=== PATIENT | female | born 1970 | race Caucasian/White ===

== ENCOUNTER 2020-09-09 13:13 | Emergency (ER) | payer BC, SELFPAY ==
[2020-09-09 13:17] VITALS: BP 161/78; PULSE 71; RESP 12; TEMP 36.7; O2SAT 100
--- NOTE | 2020-09-09 13:24 | ED.WOUNDLAC ---
HPI - Wound/Laceration General Chief Complaint: Wound/Laceration Stated Complaint: FINGER LACERATION Time Seen by Provider: 09/09/20 13:25 Source: patient and RN notes reviewed Mode of arrival: ambulatory Limitations: no limitations History of Present Illness HPI narrative: 50-year-old female presents to the [facility] with a laceration to the distal aspect of second finger left hand. At 11 AM patient went to cone picker a broken glass and cut the finger. Unable to get the bleeding to stop. Unsure of last Tdap. Has been try to get the bleeding to stop but has been unsuccessful so she came to the [facility] for evaluation. has full range of motion at all joints. Sensation intact distal to injury. Capillary refill under 2 seconds. Related Data Home Medications Medication Instructions Recorded Confirmed alprazolam 0.25 mg PO DAILY PRN 09/09/20 09/09/20 metoprolol succinate 25 mg PO DAILY 09/09/20 09/09/20 Allergies Allergy/AdvReac Type Severity Reaction Status Date / Time gluten Allergy Mild GI UPSET Verified 09/09/20 13:32 NUTS Allergy Severe ANAPHYLATIC Uncoded 09/09/20 13:32 RX SESAME SEEDS Allergy Severe SWELLING Uncoded 09/09/20 13:32 DAIRY Allergy Intermediate GI UPSET Uncoded 09/09/20 13:32 HALIBAT Allergy Unknown POSITIVE Uncoded 09/09/20 13:32 TESTING Review of Systems Review of Systems: Narrative: CONSTITUTIONAL: Denies fever, chills, or sweats. EYES: Denies visual changes, redness, or discharge. ENT: Denies rhinorrhea, congestion, sore throat, or otalgia. CARDIOVASCULAR: Denies chest pain, palpitations, or edema. RESPIRATORY: Denies cough or dyspnea. GASTROINTESTINAL: Denies abdominal pain, nausea, vomiting, or diarrhea. GENITOURINARY: Denies dysuria or hematuria. SKIN: Denies rash or itching. Laceration left second finger MUSCULOSKELETAL: Denies back pain, joint pain, or myalgia. NEUROLOGIC: Denies headache, numbness, or weakness. PSYCHIATRIC: Denies anxiety or depression. All other systems reviewed are negative, except as documented in HPI. [facility] Family History Family History Mother Depression Hypertension Cerebrovascular accident Family history of malignant neoplasm of skin Father Hypertension Family history of arthritis Family history of malignant neoplasm of skin Other Diabetes mellitus Family history of malignant neoplasm Social History Social History Smoking status: Never smoker Alcohol intake: current Comments At the time of my signature, I reviewed and agree with the nursing past medical, surgical, social, and family history. There is no relevant family history pertinent to the patient complaint. Exam Narrative: Exam Narrative: GENERAL: This is a well-nourished, well-developed patient, in no apparent distress. HEAD: normocephalic, atraumatic. EYES: PERRL. Sclera clear/white. Vision is grossly intact. EARS: External ears normal CARDIOVASCULAR: Regular rate and rhythm. RESPIRATORY: Clear to auscultation. Breath sounds equal bilaterally. No wheezes, rales, or rhonchi. SKIN: warm, intact with no suspicious lesions or rash, good texture and turgor. Laceration left second finger 1.5 cm NEURO: awake, alert, and oriented to person, place and time. There were no obvious focal neurologic abnormalities. EXTREMITIES: No joint tenderness, effusion, or edema noted. No calf tenderness. Negative Homans sign bilaterally. BACK: Nontender without deformity. No CVA tenderness. Course Vital Signs Vital signs: Vital Signs Temperature 98.0 F 09/09/20 13:17 Pulse Rate 71 09/09/20 13:17 Respiratory Rate 12 09/09/20 13:17 Blood Pressure 161/78 H 09/09/20 13:17 Pulse Oximetry 100 09/09/20 13:17 Temperature 98.0 F 09/09/20 13:17 Pulse Rate 71 09/09/20 13:17 Respiratory Rate 12 09/09/20 13:17 Blood Pressure 161/78 H 09/09/20 13:17 Pulse Oximetry 100 09/09/20
[2020-09-09] MEDS: TETANUS,DIPHTHERIA,AC PERTUSSIS ADULT (0.5 ML) BOOSTRIX IM (13:38)
[2020-09-09] MEDS: LIDOCAINE HCL 1% LOCAL INJ 20 ML VIAL 5 ML INFILTRATE (13:40)
== END 2020-09-09 14:42 | disposition home or self-care (01) ==
PROVIDERS: Emergency Provider Nurse Practitioner; PCP Physician Assistant
DX: S61.211A Laceration without foreign body of left index finger without damage to nail, initial encounter (principal); W25.XXXA Contact with sharp glass, initial encounter; Z23 Encounter for immunization; I10 Essential (primary) hypertension; F41.9 Anxiety disorder, unspecified
CPT/HCPCS: 12001; 90471; 90715; 99212; G0463

== ENCOUNTER 2023-04-25 07:01 | Outpatient (CLI) | payer BC, SELFPAY ==
--- NOTE | ~2023-04-25 | XR_ITS ---
XR lumbar spine min 4V DATE: 04/25/2023 07:23 INDICATION: Low back pain. No injury. TECHNIQUE: AP, lateral, bilateral oblique views, coned lateral lumbosacral view COMPARISON: None FINDINGS: There is mild levoscoliosis of the lumbar spine. The lumbar vertebrae are normally aligned. No fracture or bone destruction, spondylolysis or spondylolisthesis. The included lower thoracic and lumbar pedicles are intact. Lumbar and lumbosacral interspaces are well preserved. There is minimal degenerative spurring of the lumbar spine The sacroiliac joints are intact. 3 x 5 mm calcification overlying the expected position of the left ureter at the lower L4 level. Left ureteral calculus is not excluded. There is a prominent amount of fecal material throughout much of the colon. Surgical clips overlying the right upper quadrant, consistent with cholecystectomy. Surgical clips overlie the right lower abdomen and bilateral pelvic region. IMPRESSION: Cannot exclude left ureteral 3 x 5 mm calcified calculus at lower L4 level. Status post cholecystectomy Surgical clips overlying the lower right abdomen and bilateral pelvis Mild lumbar levoscoliosis Minimal degenerative spurring of the lumbar spine Reviewed, dictated and finalized at location A. IMPRESSION: Cannot exclude left ureteral 3 x 5 mm calcified calculus at lower L 4 level. Status post cholecystectomy Surgical clips overlying the lower right abdomen and bilateral pelvis Mild lumbar levoscoliosis Minimal degenerative spurring of the lumbar spine
== END 2023-04-25 07:02 | disposition home or self-care (01) ==
PROVIDERS: PCP Physician Assistant; Visit Provider Physician Assistant
DX: M41.86 Other forms of scoliosis, lumbar region (principal); M25.78 Osteophyte, vertebrae; N99.4 Postprocedural pelvic peritoneal adhesions; Z90.49 Acquired absence of other specified parts of digestive tract
CPT/HCPCS: 72110

== ENCOUNTER 2023-05-10 09:22 | Outpatient (CLI) | payer BC, SELFPAY ==
--- NOTE | ~2023-05-10 | XR_ITS ---
Supine and upright views of the abdomen Clinical history: Left-sided stone Findings: Bowel gas pattern is nonspecific. No evidence for obstruction or free air. 5 mm possible mi d left ureteral stone, projecting at the level of L4. Cholecystectomy clips noted. Surgical clips are noted bilaterally in the pelvis. Osseous structures are intact. Impression: Suspected 5 mm mid left ureteral stone, as above. Reviewed, dictated and finalized at location . OCOL MANAGER Impression: Suspected 5 mm mid left ureteral stone, as above.
== END 2023-05-10 09:23 | disposition home or self-care (01) ==
LOC: ANHIMG 09:24
PROVIDERS: PCP Physician Assistant; Visit Provider Physician Assistant
DX: N20.1 Calculus of ureter (principal)
CPT/HCPCS: 74018

== ENCOUNTER 2023-05-25 14:28 | Outpatient (CLI) | payer BC, SELFPAY ==
--- NOTE | ~2023-05-25 | CT_ITS ---
Non-contrast CT scan of the Abdomen and Pelvis Clinical indication: Ureteral stone Technique: 2.5 mm axial scans were obtained through the abdomen and pelvis without intravenous or or al contrast. Dose reduction technique was used on this scan by utilizing automated exposure control a nd iterative reconstruction technique. The dose-length product (DLP) was 288.20 mGy-cm. Findings: Images through the lung bases reveal no abnormalities. 2 mm nonobstructing left renal stone noted. No other renal or ureteral stones seen. No hydronephrosis . The liver, spleen, pancreas, and adrenals appear normal. Cholecystectomy clips are present. There is no aortic aneurysm. There is no evidence of bowel obstruction. Images through the pelvis were performed. There is no evidence of ascites or lymphadenopathy. Urinary bladder unremarkable. No adnexal mass seen. Impression: 2 mm nonobstructing left renal stone. No ureteral stones or hydronephrosis. Reviewed, dictated and finalized at [facility]. OBIOLOGY LAB TECHNICIAN Impression: 2 mm nonobstructing left renal stone. No ureteral stones or hydronephrosis.
== END 2023-05-25 14:29 | disposition home or self-care (01) ==
PROVIDERS: PCP Physician Assistant; Visit Provider Physician Assistant
DX: N20.1 Calculus of ureter (principal); N20.0 Calculus of kidney
CPT/HCPCS: 74176

== ENCOUNTER 2024-01-05 15:57 | Outpatient (CLI) | payer BC, SELFPAY ==
--- NOTE | ~2024-01-05 | XR_ITS ---
XR sacrum coccyx min 2V Ordering provider: Tania Aguirre, RHINA History: . PAIN IN COCCYX . Comparison: None. FINDINGS: BONES: Lucencies in the area of the coccyx suggestive of fractures. Clinical correlation for tenderne ss in the area is advised. JOINTS: The sacroiliac joint spaces are normal. SOFT TISSUES: Normal. IMPRESSION: Lucencies in the area of the coccyx suggestive of fractures. Clinical correlation for tenderness in t he area is advised. Reviewed, dictated and finalized at location A. IMPRESSION: Lucencies in the area of the coccyx suggestive of fractures. Clinical correlati on for tenderness in the area is advised.
--- NOTE | ~2024-01-05 | XR_ITS ---
3 VIEWS THORACIC SPINE Ordering provider: Tania Aguirre, PAAshkanC History: . PAIN IN COCCYX . Comparison: None. FINDINGS: VERTEBRAL BODIES: Normal height and alignment. No visible fracture or subluxation. Degenerative malin es. DISK SPACES: Narrowing at multiple levels. SOFT TISSUES: Normal. IMPRESSION: No acute osseous abnormality of the thoracic spine. Reviewed, dictated and finalized at location A.
== END 2024-01-05 15:58 | disposition home or self-care (01) ==
PROVIDERS: PCP Physician Assistant; Visit Provider Physician Assistant
DX: M54.6 Pain in thoracic spine (principal); M53.3 Sacrococcygeal disorders, not elsewhere classified
CPT/HCPCS: 72070; 72220

== ENCOUNTER 2024-01-27 14:26 | Outpatient (CLI) | payer BC, SELFPAY ==
--- NOTE | ~2024-01-27 | CT_ITS ---
EXAMINATION: CT abdomen pelvis wo con DATE: 01/27/2024 14:52 INDICATION: Renal stone TECHNIQUE: Computed tomography (CT) of the abdomen and pelvis was performed without intravenous contr ast. Automated exposure control and iterative reconstruction technique were employed. The dose-length product was 223.80 mGy-cm. COMPARISON: 05/25/2023 FINDINGS: Lung bases are clear. Heart size is normal. No pericardial or pleural effusion. Cholecystectomy clips the gallbladder fossa. Liver and spleen, pancreas, bilateral adrenal glands and right kidney are nor mal. 2 mm stone at a lower pole calyx of the left kidney. No other urolithiasis or hydronephrosis. La rge amount of stool scattered throughout the colon. No bowel obstruction. Bladder is normal. The uter us is not identified and has likely been surgically resected. Multiple surgical clips in the peripher al left and right pelvis extending along the bilateral iliac vasculature likely related to prior pelv ic lymph node dissections. No free intraperitoneal gas or fluid. No pathologically enlarged abdominal or pelvic lymphadenopathy. Severe lower thoracic spondylosis with Schmorl's nodes. Mild lumbar spond ylosis. IMPRESSION: 1. 2 mm nonobstructing left renal stone. No other urolithiasis or hydronephrosis. Reviewed, dictated and finalized at location A. IMPRESSION: 1. 2 mm nonobstructing left renal stone. No other urolithiasis or hydronephrosi s.
== END 2024-01-27 14:27 ==
PROVIDERS: PCP Physician Assistant; Visit Provider Physician Assistant
DX: N20.0 Calculus of kidney (principal)
CPT/HCPCS: 74176

== ENCOUNTER 2025-04-26 13:41 | Outpatient (CLI) | payer BC, SELFPAY ==
--- OUTSIDE RECORDS SUMMARY | 2004-10-28 06:00 | XMS_ITS | Continuity of Care Document ---
Author Organization [facility] Address [address] [place] [address] [place] [address] Phone Care Team Providers Care Coding Technician Name Role Phone Jasvir Shepard MD Unavailable Unavailable Advance Directives Directive Yes / No Effective Date File Name No Information Encounters Encounter Description Practice Location Reason(s) For Visit Diagnoses Date Provider Providers Copied on Encounter [facility], [id number] [place] [address] [address], [place], [place], [id number], [place] tel:[phone] [facility] No Information October-0 2-200 5 Devyn Tay. [address] [facility], [facility] [address], [place], [place], [id number], [place]. tel:[phone] Family History Family Member Type Diagnosis Age At Onset No Information Payers Payer name Insurance type Covered libertarian ID Authoriza tilynette(s) [facility] CI [id number] Social History Type Description Quantity Date Captured Comments Sex Female Smoking Status No Information Chief Complaint And Reason For Visit No Information Reason For Referral Reason For Referral No Information History Of Present Illness Encounter Date Complaint History Of Prese nt Illness No Information Functional Status Date Functional Assessmen t No Information Instructions Date Instruction Additional Infor mation No Information Assessments Type Assessment Date No Information Patient Care Teams Name Effective Dates (start - stop) Status Members No Information
--- OUTSIDE RECORDS SUMMARY | 2013-03-07 04:53 | XMS_ITS | Continuity of Care Document ---
Author Organization [facility] Address [address] [place] [address] Phone Care Team Providers Care Chemicals Fermentation Operator Name Role Phone Teofilo FRIEDMAN, Alysa Unavailable Unavailabl e Allergies, Adverse Reactions, Alerts Substance Reaction Status Criticality No Known allergies Medications Medication Instructions Dosage Effective Dates (start - stop) Status Comments Zantac 300 mg tablet take 1 tablet (300MG) by oral route every day at bedtime as needed - Active okay to substitute HYZAAR (unknown strength) Not Available - Active DUTOPROL (unknown strength) Not Available - Active WELLBUTRIN (unknown strength) Not Available - Active VITAMIN D2 (unknown strength) Not Available - Active MULTIVITAMINS (unknown strength) Not Available - Active POTASSIUM (unknown strength) Not Available - Active Dymista 137 mcg-50 mcg/spray Nasal Bogart one sp each nostril B.I.D- See notes below - No Longer Active fill script when patient brings her coupon in Xanax 0.25 mg tablet take 1 tablet (0.25MG) by oral route 3 times every day as needed 0.25 MG - No Longer Active PREMARIN (unknown strength) take 1 tablet by oral route every day Not Available - No Longer Active Procedures Procedure Date BREATHING CAPACITY TEST OFFICE/OUTPATIENT VISIT EST ROUTINE VENIPUNCTURE BREATHING CAPACITY TEST OFFICE/OUTPATIENT VISIT EST OFFICE/OUTPATIENT VISIT EST Advance Directives Directive Yes / No Effective Date File Name Resuscitation Not Answered N/A N/A Life Support Not Answered N/A N/A Intubation Not Answered N/A N/A Antibiotics Not Answered N/A N/A IV Fluid Support Not Answered N/A N/A Tube Feed Not Answered N/A N/A Other Directive N/A N/A WARNING:The information contained in this section is historical and is provided for information only and does not constitute a legal document or any assurance that the information is still accurate. Please verify the information with the serrato of the legal document before using it for clinical purposes. Encounters Encounter Description Practice Location Reason(s) For Visit Diagnoses Date Provider Providers Copied on Encounter OFFICE/OUTPA TIENT VISIT EST [facility] , [address], [place], [address], [place] tel:[phone] [facility] follow up (chief complaint) EOSINOPHILIC ESOPHAGITIS Sep-0 3 Teofilo Hamsa. [address], [place], [place], [address]. tel:[phone] OFFICE/OUTPA TIENT VISIT EST [facility] , [address], [place], [address], [place] tel:[phone] [facility] follow up (chief complaint) Respiratory abnormality, unspecifiedChro jeanne nasopharyngitis FatigueHyperten ashkan, Unspecified Aug- 3-201 3 Teofilo Hamsa. [address], [place], [place], [id number]. tel:[phone] OFFICE/OUTPA TIENT VISIT EST [facility] , [address], [place], [address], [place] tel:[phone] [facility] follow up (chief complaint) EOSINOPHILIC ESOPHAGITIS Sep-0 -201 2 Teofilo Hamsa. [address] [facility] [facility] [address], [place], [place], [id number]. tel:[phone] Referring Provider: Immanuel Terry, [address] [facility] [facility], [place], [address]. tel:[phone] [facility] , [address], [place], [address], tel:[phone] [facility] No Information 2 Teofilo Watt. [address], [place], [place], [id number]. tel:[phone] Family History Family Member Type Diagnosis Age At Onset No Information Payers Payer name Insurance type Covered green party ID Authoriza tion(s) No Information Social History Type Description Quantity Date Captured Comments Alcohol Use Details Unknown Caffeine Use Details Unknown Tobacco Use Status No Information Smoking Status Never smoker Sex Female Vital Signs Date / Time: Height Weight BMI Pulse Rate Blood Pressure Temperature Respiratory Rate Body Surface Area Head Circumference Head Circ. Percentile Wt./Hair. Percentile BMI percentile Pulse Ox Inhaled Ox 9:53 AM 65.00 in 186.00 lbs 30.9 5 kg/m eter (2) 76 /min 120/78 mm[Hg] 98.10 F 94 % Chief Complaint And Reason For Visit From encounter dated '03/07/2013 09:53'. follow up (chief complaint) Reason For Referral Reason For Referral No Information History Of Present Illness Encounter Date Complaint History Of Prese nt Illness No Information Functional Status Date Functional Assessmen t No Information Instructions Date Instruction Additional Infor mation No Information Assessments Type Assessment Date No Information Mental Status Date Cognitive Assessment Orientation - [place] ed to time, place, person, situation. Patient Care Teams Name Effective Dates (start - stop) Status Members No Information
--- NOTE | ~2025-04-26 | XR_ITS ---
Examination: XR chest 2V Clinical History: other chest pain Comparison: 02/08/2018 Technique: PA and Lateral Findings: Cardiomediastinal silhouette normal size and configuration. Mild linear bibasilar atelectasis. Lungs otherwise clear. No acute bony abnormality. IMPRESSION: 1. No acute cardiopulmonary findings. Reviewed, dictated and finalized at location R.
--- OUTSIDE RECORDS SUMMARY | 2025-04-26 15:15 | XMS_ITS | Clinical Summary ---
Author Organization [facility] Address [address] [place] [address] Care Team Providers Care Cover Seamer Name Role Phone Unavailable Primary Care Provider Unavailabl e Source Comments [facility],non-owned Affiliates and Associated Physician Practices is amultiple site organization consisting of ambulatory clinics and hospital sitesin [place], [place], [place] and [place]. This disclosure is being madepursuant to the Care Everywhere program and may not contain all information available regarding this patient. Last updated 18.[facility] Allergies No known active allergies Medications * Be aware that medications may not be up to date on this document. Alwaysverify current medications with the patient. 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 Gender Identity Not on file Sexual Orientation Not on file Last Filed Vital Signs Vital Sign Reading Time Taken Comments Blood Pressure 112/70 01/13/2019 6:01 PM CDT Pulse 87 01/13/2019 6:01 PM CDT Temperature 36.8 C (98.2 F) 01/13/2019 6:01 PM CDT Respiratory Rate 16 01/13/2019 6:01 PM CDT Oxygen Saturation 97% 01/13/2019 6:01 PM CDT Inhaled Oxygen Concentration - - Weight 68 kg (150 lb) 01/13/2019 6:01 PM CDT Height 165.1 cm (5' 5) 01/13/2019 6:01 PM CDT Body Mass Index 24.96 01/13/2019 6:01 PM CDT Plan of Treatment Health Maintenance Due Date Last Done Comments COLOGUARD (AGES 45-75) - COL ON CA SCREENING 1971 COLON MONITORING 1971 COLONOSCOPY - COLON CA SCREENING 1971 CT COLONOGRAPHY - COLON CA SCREENING 1971 Colorectal Cancer Screening 1971 FIT - COLON CA SCREENING 1971 FLEX SIG - COLON CA SCREENING 1971 LIPID TESTING 1971 MAMMOGRAM 1971 HIV SCREENING 1986 HEPATITIS C SCREENING 07/24/1989 DTAP/TDAP/TD VACCINES (1 - Tdap) 1990 HEPATITIS B VACCINE (1 of 3 - 19+ 3-dose series) 1990 PNEUMOCOCCAL VACCINE 50+ (1 of 1 - PCV) 2021 ZOSTER VACCINE (1 of 2) 2021 DEPRESSION SCREENING 06/29/2024 COVID-19 VACCINE (1 - 2023-2 5 season) 2025 INFLUENZA VACCINE (#1) 2025 HIB VACCINE Aged Out No longer eligi ble based on patient's age to complete this topic HPV VACCINE Aged Out No longer eligi ble based on patient's age to complete this topic MENINGOCOCCAL (Group B) VACC INE SHARED DECISION-MAKING Aged Out No longer eligibl e based on patient's age to complete this topic MENINGOCOCCAL GROUPS A/C/Y/W VACCINE Aged Out No longer eligible b ased on patient's age to complete this topic Insurance [facility]
--- OUTSIDE RECORDS SUMMARY | 2025-04-26 15:15 | XMS_ITS | Encounter Summary ---
Author Organization [facility] Address [address] [place] [address] Care Team Providers Care Vp Of Global Marketing Name Role Phone Tania Aguirre Primary Care Pr ovider Megan Sow MD Unavailable Catalina Bety Arminda DO Unavailable [phone] Tania Aguirre Unavailable Reason for Visit * Reason Onset Date Comments GI Preprocedure 04/25/2025 Encounter Details Date Type Department Care Team (Late st Contact Info) Description 04/25/2025 Telephone [facility] Specialty Services [address] [place] [address] Analilia Palacio RN GI Preprocedure Social History Tobacco Use Types Packs/Day Years Used Date Smoking Tobacco: Never Passive Smoke Exposure: Never Smokeless Tobacco: Never Alcohol Use Standard Drinks/Week Comments Yes 0 (1 standard drink = 0.6 oz pur e alcohol) 2/week AUDIT-C Answer Date Recorded Q1: How often do you have a drink containing alc ohol? 2-4 times a month 01/11/2024 Q2: How many drinks containi ng alcohol do you have on a typical day when you are drinking? 3 or 4 01/11/2024 Q3: How often do you have si x or more drinks on one occasion? Never 01/11/2024 Personal Safety Answer Date Recorded Have you ever been in or are you currently in a harmful physical or emotional relationship or is someone making you feel afraid or unsafe? 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 Left generic voicemail asking patient to return call GENERAL INSTRUCTIONS [x] Bring medication list, photo ID, and insurance card. Instructed to remove all jewelry and piercing before procedure. [] Review general procedure process. The Endo nurse will review your medical history, place an IV, and you will meet anesthesia team. We will monitor you after the procedure until it is safe for you to go home. Please plan to spend at least four hours here for the entire process. [x] Confirm patient has a boom truck driver (mom). Since you will be receiving sedation, you will not be able to drive or leave without someone who can monitor you. You must have a ride arranged to and from thespital with a responsible adult. If you will be going home by way of a transport service, Uber, Lyft, or cab: a responsible adult MUST be with you. The nurse will call to confirm your transportation and if they are unable to confirm your procedure will be cancelled. Notes/Issues: call: Lucia [phone] if unable to come to appt / and or need to reschedule. Pt states has had procedure before, and has no questions at this time. documented in this encounter Plan of Treatment Upcoming Encounters Date Type Department Care Team (Latest Contact Info) Description 04/28/2025 1:00 PM CDT Hospital Encounter [facility] [address] [place] [address] Chelsea Mcgraw MD [address] [address] [place], [place] [id number] 04/28/2025 1:00 PM CDT - 04/28/2025 1:30 PM CDT Surgery [facility] [address] [place] [address] Chelsea Mcgraw MD [address] [place] [address] ESOPHAGOGASTRODUODENOSCOPY Scheduled Procedures Name Priority Associated Diagnoses Date/Ti me ESOPHAGOGASTRODUODENOSCOPY Gastritis, presence of bleeding unspecified, unspecified chronicity, unspecified gastritis type 04/28/2025 1:00 PM CDT documented as of this encounter Visit Diagnoses Not on filedocumented in this encounter Care Teams Vp Of Global Marketing Relationship Specialty Start Date End Date Tania gAuirre PA PCP - General Physician Sash Clamp Operator 02/10/18 Megan Sow MD [address] [place] [id number] Cigar Bander Hand Obstetrics and Gynecology 08/13/21 Bety Arnold DO [address] [place] [address] Consulting Physician Obstetrics and Gynecology 12/14/23 Tania Aguirre PA [address] [place] [address] Referring Physician Physician Sash Clamp Operator 01/21/24 documented as of this encounter
--- OUTSIDE RECORDS SUMMARY | 2025-04-26 15:16 | XMS_ITS | Encounter Summary ---
Author Organization [facility] Address [address] [place] [address] Care Team Providers Care Property And Equipment Clerk Name Role Phone Maxi Coelho MD Primary Care Provider + Encounter Details Date Type Department Care Team (Latest Contact Info) Description 11/19/2007 Outpatient Historical [facility] Jose Silva MD [address] [place] [address] [address] [place] [address] Other Screening Mammogram Social History Tobacco Use Types Packs/Day Years Used Date Smoking Tobacco: Never Assessed Comments Unknown Sex and Gender Information Value Date Recorded Sex Assigned at Not on file Legal Sex Female 3:06 AM [employer] Gender Identity Not on file Sexual Orientation Not on file documented as of this encounter Plan of Treatment Not on file documented as of this encounter Procedures Procedure Name Priority Date/Time Associated Diagnosis Comments MAMMO SCREEN BILAT W OR WO CAD Routine 11/19/2007 7:40 AM CDT documented in this encounter Results * MAMMO DIGITAL SCREEN BILAT (11/19/2007 7:40 AM CDT) Anatomical Region Laterality Modality Breast Bilateral Other 11/19/2007 7:40 AM CDT Narrative 11/19/2007 9:47 AM CDT [address] [address] Admit Date: 11/19/2007 BLAKE VALDEZ Sex: F Admit Prov: JOSE CHACON Date: 1970 Primary Care Prov: PCP , NONE CMRN: [id number] Room: KILEYSindhu SSN: [id number] IMAGING SERVICES Ordering Prov: JOSE CHACON Accession Number: [id number] Interpretation DIGITAL SCREENING MAMMOGRAM WITH COMPUTER-ASSISTED DIAGNOSIS Findings: The breasts were imaged with digital mammographic technique. The breasts are almost entirely fat. No significant mass, malignant calcification or architectural distortion is noted. The CAD system does not highlight any suspicious areas. Summary: No mammographic evidence of malignancy. There has been no significant change from prior study of 11/02. Recommendations: Bilateral yearly screening mammogram is recommended. Assessment BIRADS: 1-Negative Recommendation: Normal interval follow-up Dictated by: MICHELINE BARCENAS Electronically signed by: MICHELINE BARCENAS 11/19/2007 09:47 Transcribed: 11/19/2007 09:47 CXZ Procedure Note Micheline Barcenas - 11/19/2007 [id number] [place], [place] [address] Admit Date: 11/19/2007 BLAKE VALDEZ Sex: F Admit Prov: JOSE CHACON Date: 1970 Primary Care Prov: PCP , NONE CMRN: [id number] Room: KILEYSindhu SSN: [id number] IMAGING SERVICES Ordering Prov: JOSE CHACON Interpretation DIGITAL SCREENING MAMMOGRAM WITH COMPUTER-ASSISTED DIAGNOSIS Findings: The breasts were imaged with digital mammographictechnique. The breasts are almost entirely fat. No significant mass, malignant calcification or architectural distortion is noted. The CAD system does not highlight any suspicious areas. Summary: No mammographic evidence of malignancy. There has been no significant change from prior study of 11/02. Recommendations: Bilateral yearly screening mammogram is recommended. Assessment BIRADS: 1-Negative Recommendation: Normal interval follow-up Dictated by: MICHELINE BARCENAS Electronically signed by: MICHELINE BARCENAS 11/19/2007 09:47 Transcribed: 11/19/2007 09:47 CXZ Jose Chacon MD MAMMO ORDERABLES Final Resul t documented in this encounter Visit Diagnoses Diagnosis Other screening mammogram documented in this encounter Care Teams Property And Equipment Clerk Relationship Specialty Start Date End Date Maxi Coelho MD PCP - General 07/13/09 documented as of this encounter
--- OUTSIDE RECORDS SUMMARY | 2025-04-26 15:16 | XMS_ITS | Data Portability ---
Author Organization [facility], Main Office Address [address] [place] [address] Assessment No assessment recorded. Plan of Treatment Reminders Order Date Submit Date Provider Last Modified By Organization Details Last Modified Time Details Appointments None recorded. Lab CMP, serum or plasma 2022 023 [place], [address], [place], [address], 20:21:24 urinalysis, complete 2022 023 [place], [address], [place], [address], 20:21:26 culture, urine 2022 023 [place] [facility], [address], [place], [address], 20:21:27 urinalysis, dipstick 2022 023 [email or web address] [facility] [place], [address], [place], [address], 14:36:24 lipid panel, serum 2022 023 [facility], [address], [place], [address], 07:29:54 CMP, serum or plasma 2022 Kadmon [facility], [address], [address], [place], [address], 3 07:29:55 CBC w/ auto diff 2022 Kadmon [facility], [address], [place], [address], 3 07:29:57 TSH + free T4, serum 2022 [facility], [address], [place], [address], 3 07:29:53 vitamin D, 25-hydroxy, total, serum 2022 [facility], [address], [place], [address], 3 07:29:56 HbA1c (hemoglobin A1c), blood 2022 [facility], [address], [place], [address], 07:29:56 Referral None recorded. Procedures None recorded. Surgeries None recorded. Imaging XR, lumbosacral spine, 4 or more view 2022 [place] Not available 09:40:29 Medication Orders famotidine 20 mg tablet 2022 [place] [id number], [address], [place], [id number], 10:43:19 Macrobid 100 mg capsule 2022 [facility], [address], [place], [id number], 10:43:33 amoxicillin 875 mg-potassiu m clavulanate 125 mg tablet 2022 023 [email or web address] [facility] #[id number], [address], [place], [id number], 3 10:55:42 alprazolam 0.25 mg tablet 2022 023 KAREN [facility] #06002, [address], [place], [id number], 3 17:52:52 Patient TargetsNo targets recorded. Patient InstructionsNo instructions recorded. Reason for Referral None Reported. Results Created Date Observation Date Name Description Value Unit Range Abnormal Flag Note LastModifiedBy Organization Detail LastModifiedTime 12/25/1912/25/2022 TSH+F REE T4 TSH 1.16 mIU/L normal Refer ence Range > or = 20 Years 0.40- 4.50 Pregn sudeep Range s First trime ster 0.26- 2.66 Secon d trime ster 0.55- 2.73 Third trime ster 0.43- 2.91 Not Available [address], [address], 12/25/2022 07:29:53 12/25/1912/25/2022 TSH+F REE T4 T4, free 1.1 NG/dL 0.8-1. 8 normal Not Available [facility] [address], [address], 12/25/2022 07:29:53 12/25/19 23 12/25/2022 LIPID PANEL WITH RATIO S cholesterol, total 187 mg/dL <200 normal Not Available [facility] [address], [address], 12/25/2022 07:29:54 12/25/19 23 12/25/2022 LIPID PANEL WITH RATIO S HDL cholesterol 96 mg/dL > or = 50 normal Not Available [facility] [address] [place], [address], 12/25/2022 07:29:54 12/25/19 23 12/25/2022 LIPID PANEL WITH RATIO S triglyceride s 43 mg/dL <150 normal Not Available [address], [address], 12/25/2022 07:29:54 12/25/19 23 12/25/2022 LIPID PANEL WITH RATIO S LDL-choleste rol 79 mg/dL _(chandler c) normal Refer ence range : <100 Terence able range <100 mg/dL for prima ry preve ntion ; <70 mg/dL for patie nts with CHD or diabe tic patie nts with > or = 2 CHD risk facto rs. LDL-C is now calcu lated using the Iliana n-Hop kins calcu latio n, which is a valid ated novel gino zimmermante r accur acy than the Fried guille equat ion in the estim ation of LDL-C . Iliana harry SS et al. BRADY. 2013; 310(1 9): 2061- 2068 (http ://ed ucati on.Qu rayshawnHenable. com/f aq/FA Q164) Not Available [address] [address] [facility], [place], [address], 12/25/2022 07:29:54 12/25/19 23 12/25/2022 LIPID PANEL WITH RATIO S chol/HDLC ratio 1.9 (calc ) <5.0 normal Not Available [address], [address], 12/25/2022 07:29:54 12/25/19 23 12/25/2022 LIPID PANEL WITH RATIO S LDL/HDL ratio 0.8 (calc ) Below avera ge Risk: <2.34 [place] ge Risk: 2.35- 4.12 Moder ate Risk: 4.13- 5.56 High Risk: >5.57 Not Available [address], [address], 12/25/2022 07:29:54 12/25/19 23 12/25/2022 LIPID PANEL WITH RATIO S non HDL cholesterol 91 mg/dL _(chandler c) <130 normal For patie nts with diabe mabel plus 1 major ASCVD risk facto r, treat ing to a non-H DL-C goal of <100 mg/dL (LDL- C of <70 mg/dL ) is consi alejandrod a reyesa pedorenei c optio n. Not Available [facility] [address] [place], [address], 12/25/2022 07:29:54 12/25/19 23 12/25/2022 COMPR EHENS DAVID METAB OLIC PANEL glucose 76 mg/dL 65-99 normal Fasti ng refer ence inter esequiel Not Available [facility] [address] [address] [place], [address], 12/25/2022 07:29:55 12/25/19 23 12/25/2022 COMPR EHENS DAVID METAB OLIC PANEL urea nitrogen (BUN) 22 mg/dL 7-25 normal Not Available [facility] [address], [address], 12/25/2022 07:29:55 12/25/19 23 12/25/2022 COMPR EHENS DAVID METAB OLIC PANEL creatinine 1.02 mg/dL 0.50-1 .03 normal Not Available [address], [address], 12/25/2022 07:29:55 12/25/19 23 12/25/2022 COMPR EHENS DAVID METAB OLIC PANEL eGFR 67 mL/mi n/1.7 3m2 > or = 60 normal The eGFR is based on the CKD-E PI 2020 equat ion. To calcu late the new eGFR from a previ ous Creat inine or Cysta tin C resul t, go to https ://ailyn russell.analilia sun/galilea greco s/ kdoqi /gfr% 5Fcal culat or Not Available [facility] [address] [address] [place], [address], 12/25/2022 07:29:55 12/25/19 23 12/25/2022 COMPR EHENS DAVID METAB OLIC PANEL BUN/creatini ne ratio NOT APPLIC ABLE (calc ) 6-22 Not Available [address], [address], 12/25/2022 07:29:55 12/25/19 23 12/25/2022 COMPR EHENS DAVID METAB OLIC PANEL sodium 140 mmol/ L 135-14 6 normal Not Available [address], [address], 12/25/2022 07:29:55 12/25/19 23 12/25/2022 COMPR EHENS DAVID METAB OLIC PANEL potassium 4.1 mmol/ L 3.5-5. 3 normal Not Available [address], [address], 12/25/2022 07:29:55 12/25/19 23 12/25/2022 COMPR EHENS DAVID METAB OLIC PANEL chloride 105 mmol/ L 98-110 normal Not Available [address], [address], 12/25/2022 07:29:55 12/25/19 23 12/25/2022 COMPR EHENS DAVID METAB OLIC PANEL carbon dioxide 29 mmol/ L 20-32 normal Not Available [address], [address], 12/25/2022 07:29:55 12/25/19 23 12/25/2022 COMPR EHENS DAVID METAB OLIC PANEL calcium 9.1 mg/dL 8.6-10 .4 normal Not Available [address], [address], 12/25/2022 07:29:55 12/25/19 23 12/25/2022 COMPR EHENS DAVID METAB OLIC PANEL protein, total 6.6 g/dL 6.1-8. 1 normal Not Available [address], [address], 12/25/2022 07:29:55 12/25/19 23 12/25/2022 COMPR EHENS DAVID METAB OLIC PANEL albumin 4.0 g/dL 3.6-5. 1 normal Not Available [address], [address], 12/25/2022 07:29:55 12/25/19 23 12/25/2022 COMPR EHENS DAVID METAB OLIC PANEL globulin 2.6 g/dL_ (calc ) 1.9-3. 7 normal Not Available [address], [address], 12/25/2022 07:29:55 12/25/19 23 12/25/2022 COMPR EHENS DAVID METAB OLIC PANEL albumin/glob ulin ratio 1.5 (calc ) 1.0-2. 5 normal Not Available [address], [address], 12/25/2022 07:29:55 12/25/19 23 12/25/2022 COMPR EHENS DAVID METAB OLIC PANEL bilirubin, total 1.7 mg/dL 0.2-1. 2 high Not Available [address], [address], 12/25/2022 07:29:55 12/25/19 23 12/25/2022 COMPR EHENS DAVID METAB OLIC PANEL alkaline phosphatase 67 U/L 37-153 normal Not Available [facility] [email or web address] [address], [address], 12/25/2022 07:29:55 12/25/19 23 12/25/2022 COMPR EHENS DAVID METAB OLIC PANEL AST 20 U/L 10-35 normal Not Available [facility] [address], [place], [address], 12/25/2022 07:29:55 12/25/1912/25/2022 COMPR EHENS DAVID METAB OLIC PANEL ALT 15 U/L 6-29 normal Not Available [facility] [address], [place], [address], 12/25/2022 07:29:55 12/25/19 23 12/25/2022 HEMOG LOBIN A1C hemoglobin A1C 4.9 %_of_ total _HGB <5.7 normal For the purpo se of scree marty for the prese nce of diabe mabel: <5.7% Consi stent with the absen ce of diabe mabel 5.7-6 .4% Consi stent with incre ased risk for diabe mabel (pred iabet es) > or =6.5% Consi stent with diabe mabel This assay resul t is consi stent with a decre ased risk of diabe mabel. Curre ntly, no conse nsus exist s christina fink use of hemog lobin A1c for diagn osis of diabe mabel in child candelaria. Accor ding to Ameri can Diabe mabel Assoc iatio n (ADA) guide lines , hemog lobin A1c <7.0% repre sents optim al contr ol in non-p regna nt diabe tic patie nts. Diffe rent metri cs may apply to speci fic patie nt popul ation s. Stand ards of Medic al Care in Diabe mabel(A DA). Not Available [facility] [address], [place], [address], 12/25/2022 07:29:56 12/25/1912/25/2022 VITAM IN D,25- OH,TO BISHOP,I A vitamin D,25-oh,tota l,ia 30 NG/mL 30-100 normal Vitam in D Statu s 25-OH Vitam in D: Defic iency : <20 ng/mL Insuf ficie ncy: 20 - 29 ng/mL Optim al: > or = 30 ng/mL For 25-OH Vitam in D testi ng on patie nts on D2-redding pplem entat ion and patie nts for whom quant itati on of D2 and D3 fract ions is requi red, the [facility](TM ) 25-OH VIT D, (D2,D 3), LC/MS /MS is recom cheri d: order code 34337 (gemma ents >2yrs ). See Note 1 Note 1 For addit ional infor jack saenz e refer to http: //[facility] moises Gill stDia gnost ics.c om/fa q/FAQ 199 (This link is being provi ded for infor tootie colon/ jeff linoo ses only. ) Not Available [address], [address], 12/25/2022 07:29:56 12/25/19 23 12/25/2022 CBC (INCL UDES DIFF/ PLT) white blood cell count 3.6 thous and/u L 3.8-10 .8 low Not Available [address], [address], 12/25/2022 07:29:57 12/25/19 23 12/25/2022 CBC (INCL UDES DIFF/ PLT) red blood cell count 4.16 alexis on/uL 3.80-5 .10 normal Not Available [address], [address], 12/25/2022 07:29:57 12/25/19 23 12/25/2022 CBC (INCL UDES DIFF/ PLT) hemoglobin 13.1 g/dL 11.7-1 5.5 normal Not Available [address], [address], 12/25/2022 07:29:57 12/25/19 23 12/25/2022 CBC (INCL UDES DIFF/ PLT) hematocrit 40.4 % 35.0-4 5.0 normal Not Available [address], [address], 12/25/2022 07:29:57 12/25/1912/25/2022 CBC (INCL UDES DIFF/ PLT) MCV 97.1 fL 80.0-1 00.0 normal Not Available [address], [address], 12/25/2022 07:29:57 12/25/19 23 12/25/2022 CBC (INCL UDES DIFF/ PLT) MCH 31.5 pg 27.0-3 3.0 normal Not Available [address], [address], 12/25/2022 07:29:57 12/25/19 23 12/25/2022 CBC (INCL UDES DIFF/ PLT) MCHC 32.4 g/dL 32.0-3 6.0 normal Not Available [address], [address], 12/25/2022 07:29:57 12/25/19 23 12/25/2022 CBC (INCL UDES DIFF/ PLT) RDW 13.5 % 11.0-1 5.0 normal Not Available [address], [address], 12/25/2022 07:29:57 12/25/1912/25/2022 CBC (INCL UDES DIFF/ PLT) platelet count 209 thous and/u L 140-40 0 normal Not Available [address], [address], 12/25/2022 07:29:57 12/25/1912/25/2022 CBC (INCL UDES DIFF/ PLT) MPV 10.8 fL 7.5-12 .5 normal Not Available [address], [address], 12/25/2022 07:29:57 12/25/19 23 12/25/2022 CBC (INCL UDES DIFF/ PLT) absolute neutrophils 1836 cells /uL 1500-7 800 normal Not Available [address], [address], 12/25/2022 07:29:57 12/25/19 23 12/25/2022 CBC (INCL UDES DIFF/ PLT) absolute lymphocytes 1296 cells /uL 850-39 00 normal Not Available [address], [address], 12/25/2022 07:29:57 12/25/19 23 12/25/2022 CBC (INCL UDES DIFF/ PLT) absolute monocytes 374 cells /uL 200-95 0 normal Not Available [address], [address], 12/25/2022 07:29:57 12/25/19 23 12/25/2022 CBC (INCL UDES DIFF/ PLT) absolute eosinophils 72 cells /uL 15-500 normal Not Available [address], [address], 12/25/2022 07:29:57 12/25/19 23 12/25/2022 CBC (INCL UDES DIFF/ PLT) absolute basophils 22 cells /uL 0-200 normal Not Available [address], [address], 12/25/2022 07:29:57 12/25/19 23 12/25/2022 CBC (INCL UDES DIFF/ PLT) neutrophils 51 % normal Not Available [address], [address], 12/25/2022 07:29:57 12/25/19 23 12/25/2022 CBC (INCL UDES DIFF/ PLT) lymphocytes 36.0 % normal Not Available [address], [address], 12/25/2022 07:29:57 12/25/19 23 12/25/2022 CBC (INCL UDES DIFF/ PLT) monocytes 10.4 % normal Not Available [address], [address], 12/25/2022 07:29:57 12/25/19 23 12/25/2022 CBC (INCL UDES DIFF/ PLT) eosinophils 2.0 % normal Not Available [address], [address], 12/25/2022 07:29:57 12/25/19 23 12/25/2022 CBC (INCL UDES DIFF/ PLT) basophils 0.6 % normal Not Available [address], [address], 12/25/2022 07:29:57 01/06/20 23 01/06/2023 URINA LYSIS , COMPL ETE color YELLOW yellow normal Not Available [address], [address], 01/06/2023 20:34:10 01/06/20 23 01/06/2023 URINA LYSIS , COMPL ETE appearance CLEAR clear normal Not Available [address], [address], 01/06/2023 20:34:10 01/06/20 23 01/06/2023 URINA LYSIS , COMPL ETE specific gravity 1.021 1.001- 1.035 normal Not Available [address], [address], 01/06/2023 20:34:10 01/06/20 23 01/06/2023 URINA LYSIS , COMPL ETE pH < OR = 5.0 5.0-8. 0 normal Not Available [address], [address], 01/06/2023 20:34:10 01/06/20 23 01/06/2023 URINA LYSIS , COMPL ETE glucose NEGATI VE negati ve normal Not Available [address], [address], 01/06/2023 20:34:10 01/06/20 23 01/06/2023 URINA LYSIS , COMPL ETE bilirubin NEGATI VE negati ve normal Not Available [address], [address], 01/06/2023 20:34:10 01/06/20 23 01/06/2023 URINA LYSIS , COMPL ETE ketones NEGATI VE negati ve normal Not Available [address], [address], 01/06/2023 20:34:10 01/06/20 23 01/06/2023 URINA LYSIS , COMPL ETE occult blood TRACE negati ve abnormal Not Available [address], [address], 01/06/2023 20:34:10 01/06/20 23 01/06/2023 URINA LYSIS , COMPL ETE protein NEGATI VE negati ve normal Not Available [address], [address], 01/06/2023 20:34:10 01/06/20 23 01/06/2023 URINA LYSIS , COMPL ETE nitrite NEGATI VE negati ve normal Not Available [address], [address], 01/06/2023 20:34:10 01/06/20 23 01/06/2023 URINA LYSIS , COMPL ETE leukocyte esterase NEGATI VE negati ve normal Not Available [address], [address], 01/06/2023 20:34:10 01/06/20 23 01/06/2023 URINA LYSIS , COMPL ETE WBC 0-5 /hpf < or = 5 normal Not Available [facility] [address], [address], 01/06/2023 20:34:10 01/06/20 23 01/06/2023 URINA LYSIS , COMPL ETE RBC 3-10 /hpf < or = 2 abnormal Not Available [facility] [address], [address], 01/06/2023 20:34:10 01/06/20 23 01/06/2023 URINA LYSIS , COMPL ETE squamous epithelial cells 0-5 /hpf < or = 5 Not Available [facility] [address], [address], 01/06/2023 20:34:10 01/06/20 23 01/06/2023 URINA LYSIS , COMPL ETE bacteria NONE SEEN /hpf none seen normal Not Available [facility] [address], [address], 01/06/2023 20:34:10 01/06/20 23 01/06/2023 URINA LYSIS , COMPL ETE hyaline cast NONE SEEN /lpf none seen normal Not Available [address], [address], 01/06/2023 20:34:10 01/06/20 23 01/06/2023 CULTU RE, URINE , ROUTI NE culture, urine, routine CULTU RE, URINE , ROUTI NE Micro Numbe r: [id number] Test Statu s: Final Speci men Sourc e: Urine , clean catch Speci men Quali ty: Adequ ate Resul t: Mixed genit al nirmala isola maris. These super ficia l bacte carter are not indic ative of a urina ry tract infec tion. No furth er organ ism ident ifica tion is warra nted on this speci men. If clini roby indic ated, recol lect clean -catc h, mid-s tream urine and trans kartik immed iatel y to Urine Cultu re Trans port Tube. Not Available [address], [address], 01/06/2023 20:34:12 02/18/20 23 02/18/2023 CBC (INCL UDES DIFF/ PLT) white blood cell count 3.4 thous and/u L 3.8-10 .8 low Not Available [address], [address], 02/18/2023 04:24:24 02/18/20 23 02/18/2023 CBC (INCL UDES DIFF/ PLT) red blood cell count 4.30 alexis on/uL 3.80-5 .10 normal Not Available [address], [address], 02/18/2023 04:24:24 02/18/20 23 02/18/2023 CBC (INCL UDES DIFF/ PLT) hemoglobin 13.5 g/dL 11.7-1 5.5 normal Not Available [address], [address], 02/18/2023 04:24:24 02/18/20 23 02/18/2023 CBC (INCL UDES DIFF/ PLT) hematocrit 41.8 % 35.0-4 5.0 normal Not Available [address], [address], 02/18/2023 04:24:24 02/18/20 23 02/18/2023 CBC (INCL UDES DIFF/ PLT) MCV 97.2 fL 80.0-1 00.0 normal Not Available [facility] [address], [address], 02/18/2023 04:24:24 02/18/20 23 02/18/2023 CBC (INCL UDES DIFF/ PLT) MCH 31.4 pg 27.0-3 3.0 normal Not Available [facility] [address], [address], 02/18/2023 04:24:24 02/18/20 23 02/18/2023 CBC (INCL UDES DIFF/ PLT) MCHC 32.3 g/dL 32.0-3 6.0 normal Not Available [address], [address], 02/18/2023 04:24:24 02/18/2002/18/2023 CBC (INCL UDES DIFF/ PLT) RDW 12.9 % 11.0-1 5.0 normal Not Available [address], [address], 02/18/2023 04:24:24 02/18/20 23 02/18/2023 CBC (INCL UDES DIFF/ PLT) platelet count 196 thous and/u L 140-40 0 normal Not Available [address], [address], 02/18/2023 04:24:24 02/18/20 23 02/18/2023 CBC (INCL UDES DIFF/ PLT) MPV 11.6 fL 7.5-12 .5 normal Not Available [address], [address], 02/18/2023 04:24:24 02/18/20 23 02/18/2023 CBC (INCL UDES DIFF/ PLT) absolute neutrophils 1265 cells /uL 1500-7 800 low Not Available [address], [address], 02/18/2023 04:24:24 02/18/20 23 02/18/2023 CBC (INCL UDES DIFF/ PLT) absolute lymphocytes 1537 cells /uL 850-39 00 normal Not Available [address], [address], 02/18/2023 04:24:24 02/18/20 23 02/18/2023 CBC (INCL UDES DIFF/ PLT) absolute monocytes 476 cells /uL 200-95 0 normal Not Available [address], [address], 02/18/2023 04:24:24 02/18/20 23 02/18/2023 CBC (INCL UDES DIFF/ PLT) absolute eosinophils 92 cells /uL 15-500 normal Not Available [address], [address], 02/18/2023 04:24:24 02/18/20 23 02/18/2023 CBC (INCL UDES DIFF/ PLT) absolute basophils 31 cells /uL 0-200 normal Not Available [address], [address], 02/18/2023 04:24:24 02/18/2002/18/2023 CBC (INCL UDES DIFF/ PLT) neutrophils 37.2 % normal Not Available [facility] [address], [address], 02/18/2023 04:24:24 02/18/2002/18/2023 CBC (INCL UDES DIFF/ PLT) lymphocytes 45.2 % normal Not Available [address], [address], 02/18/2023 04:24:24 02/18/2002/18/2023 CBC (INCL UDES DIFF/ PLT) monocytes 14.0 % normal Not Available [address], [address], 02/18/2023 04:24:24 02/18/20 23 02/18/2023 CBC (INCL UDES DIFF/ PLT) eosinophils 2.7 % normal Not Available [address], [address], 02/18/2023 04:24:24 02/18/20 23 02/18/2023 CBC (INCL UDES DIFF/ PLT) basophils 0.9 % normal Not Available [facility] [address] [place], [address], 02/18/2023 04:24:24 04/24/2004/24/2023 urina lysis , dipst ick Leukocytes (reference range: negative maureen/ l) Negati ve Not Available [facility] [place] [address], [place], [address], 04/24/2023 14:35:42 04/24/2004/24/2023 urina lysis , dipst ick Nitrite (reference rage: negative mg/dl) negati ve Not Available [facility] [place] [address], [place], [address], 04/24/2023 14:35:42 04/24/2004/24/2023 urina lysis , dipst ick Urobilinogen (reference range: 0.2-1 mg/dl) 0.[address] [facility] [place] [address], [place], [address], 04/24/2023 14:35:42 04/24/2004/24/2023 urina lysis , dipst ick Protein (reference range: negative mg/dl) Negati ve Not Available [facility] [place] [address], [place], [address], 04/24/2023 14:35:42 04/24/2004/24/2023 urina lysis , dipst ick pH (reference range: 5-7) 7.0 Not Available [facility] [place] [address], [place], [address], 04/24/2023 14:35:42 04/24/2004/24/2023 urina lysis , dipst ick Blood (reference range: negative Lon/ l) Hemoly zed: Trace Not Available [facility] [place] [address], [place], [address], 04/24/2023 14:35:42 04/24/2004/24/2023 urina lysis , dipst ick Specific [place] (reference range: 1.005-1.030) 1.010 Not Available [facility] [place] [address], [place], [address], 04/24/2023 14:35:42 04/24/2004/24/2023 urina lysis , dipst ick Ketone (reference range: negative mg/dl) Negati ve Not Available [facility] [place] [address], [place], [address], 04/24/2023 14:35:42 04/24/2004/24/2023 urina lysis , dipst ick Bilirubin (reference range: negative mg/dl) Negati ve Not Available [facility] [place] [address], [place], [address], 04/24/2023 14:35:42 04/24/2004/24/2023 urina lysis , dipst ick Glucose (reference range: negative mg/dl) Negati ve Not Available [facility] [place] [address], [place], [address], 04/24/2023 14:35:42 04/24/2004/24/2023 urina lysis , dipst ick Appearance Clear Not Available [facility] [place] [address], [place], [address], 04/24/2023 14:35:42 04/24/20 23 04/24/2023 urina lysis , dipst ick Color Pale Yellow Not Available [facility] [place] [address], [place], [address], 04/24/2023 14:35:42 04/25/20 23 04/26/2023 COMPR EHENS DAVID METAB OLIC PANEL glucose 82 mg/dL 65-99 normal Fasti ng refer ence inter esequiel Not Available [address] [address] [place], [address], 04/26/2023 20:21:24 04/25/20 23 04/26/2023 COMPR EHENS DAVID METAB OLIC PANEL urea nitrogen (BUN) 15 mg/dL 7-25 normal Not Available [address] [address] [place], [address], 04/26/2023 20:21:24 04/25/20 23 04/26/2023 COMPR EHENS DAVID METAB OLIC PANEL creatinine 0.89 mg/dL 0.50-1 .03 normal Not Available [address] [address] [place], [address], 04/26/2023 20:21:24 04/25/20 23 04/26/2023 COMPR EHENS DAVID METAB OLIC PANEL eGFR 78 mL/mi n/1.7 3m2 > or = 60 normal Not Available [address] [address] [place], [address], 04/26/2023 20:21:24 04/25/20 23 04/26/2023 COMPR EHENS DAVID METAB OLIC PANEL BUN/creatini ne ratio SEE NOTE: (calc ) 6-22 Not Repor maris: BUN and Creat inine are withi n refer ence range . Not Available [address] [address] [place], [address], 04/26/2023 20:21:24 04/25/20 23 04/26/2023 COMPR EHENS DAVID METAB OLIC PANEL sodium 138 mmol/ L 135-14 6 normal Not Available [address], [address], 04/26/2023 20:21:24 04/25/2004/26/2023 COMPR EHENS DAVID METAB OLIC PANEL potassium 4.2 mmol/ L 3.5-5. 3 normal Not Available [address], [address], 04/26/2023 20:21:24 04/25/20 23 04/26/2023 COMPR EHENS DAVID METAB OLIC PANEL chloride 102 mmol/ L 98-110 normal Not Available [address], [address], 04/26/2023 20:21:24 04/25/20 23 04/26/2023 COMPR EHENS DAVID METAB OLIC PANEL carbon dioxide 28 mmol/ L 20-32 normal Not Available [address], [address], 04/26/2023 20:21:24 04/25/20 23 04/26/2023 COMPR EHENS DAVID METAB OLIC PANEL calcium 8.8 mg/dL 8.6-10 .4 normal Not Available [address], [address], 04/26/2023 20:21:24 04/25/20 23 04/26/2023 COMPR EHENS DAVID METAB OLIC PANEL protein, total 6.5 g/dL 6.1-8. 1 normal Not Available [address], [address], 04/26/2023 20:21:24 04/25/20 23 04/26/2023 COMPR EHENS DAVID METAB OLIC PANEL albumin 4.1 g/dL 3.6-5. 1 normal Not Available [address], [address], 04/26/2023 20:21:24 04/25/20 23 04/26/2023 COMPR EHENS DAVID METAB OLIC PANEL globulin 2.4 g/dL_ (calc ) 1.9-3. 7 normal Not Available [address], [address], 04/26/2023 20:21:24 04/25/20 23 04/26/2023 COMPR EHENS DAVID METAB OLIC PANEL albumin/glob ulin ratio 1.7 (calc ) 1.0-2. 5 normal Not Available [address], [address], 04/26/2023 20:21:24 04/25/20 23 04/26/2023 COMPR EHENS DAVID METAB OLIC PANEL bilirubin, total 1.1 mg/dL 0.2-1. 2 normal Not Available [address], [address], 04/26/2023 20:21:24 04/25/20 23 04/26/2023 COMPR EHENS DAVID METAB OLIC PANEL alkaline phosphatase 69 U/L 37-153 normal Not Available [address], [address], 04/26/2023 20:21:24 04/25/20 23 04/26/2023 COMPR EHENS DAVID METAB OLIC PANEL AST 28 U/L 10-35 normal Not Available [address], [address], 04/26/2023 20:21:24 04/25/20 23 04/26/2023 COMPR EHENS DAVID METAB OLIC PANEL ALT 19 U/L 6-29 normal Not Available [address], [address], 04/26/2023 20:21:24 04/25/20 23 04/26/2023 URINA LYSIS , COMPL ETE color YELLOW yellow normal Not Available [address], [address], 04/26/2023 20:21:26 04/25/2004/26/2023 URINA LYSIS , COMPL ETE appearance CLEAR clear normal Not Available [address], [address], 04/26/2023 20:21:26 04/25/2004/26/2023 URINA LYSIS , COMPL ETE specific gravity 1.006 1.001- 1.035 normal Not Available [address], [address], 04/26/2023 20:21:26 04/25/2004/26/2023 URINA LYSIS , COMPL ETE pH 7.0 5.0-8. 0 normal Not Available [address], [address], 04/26/2023 20:21:26 04/25/20 23 04/26/2023 URINA LYSIS , COMPL ETE glucose NEGATI VE negati ve normal Not Available [address], [address], 04/26/2023 20:21:26 04/25/20 23 04/26/2023 URINA LYSIS , COMPL ETE bilirubin NEGATI VE negati ve normal Not Available [address], [address], 04/26/2023 20:21:26 04/25/2004/26/2023 URINA LYSIS , COMPL ETE ketones NEGATI VE negati ve normal Not Available [address], [address], 04/26/2023 20:21:26 04/25/20 23 04/26/2023 URINA LYSIS , COMPL ETE occult blood NEGATI VE negati ve normal Not Available [address], [address], 04/26/2023 20:21:26 04/25/2004/26/2023 URINA LYSIS , COMPL ETE protein NEGATI VE negati ve normal Not Available [address], [address], 04/26/2023 20:21:26 04/25/2004/26/2023 URINA LYSIS , COMPL ETE nitrite NEGATI VE negati ve normal Not Available [address], [address], 04/26/2023 20:21:26 04/25/2004/26/2023 URINA LYSIS , COMPL ETE leukocyte esterase NEGATI VE negati ve normal Not Available [address], [address], 04/26/2023 20:21:26 04/25/2004/26/2023 URINA LYSIS , COMPL ETE WBC NONE SEEN /hpf < or = 5 normal Not Available [address], [address], 04/26/2023 20:21:26 04/25/20 23 04/26/2023 URINA LYSIS , COMPL ETE RBC NONE SEEN /hpf < or = 2 normal Not Available [address], [address], 04/26/2023 20:21:26 04/25/20 23 04/26/2023 URINA LYSIS , COMPL ETE squamous epithelial cells NONE SEEN /hpf < or = 5 normal Not Available [address], [address], 04/26/2023 20:21:26 04/25/20 23 04/26/2023 URINA LYSIS , COMPL ETE bacteria NONE SEEN /hpf none seen normal Not Available [address] [place], [address], 04/26/2023 20:21:26 04/25/2004/26/2023 URINA LYSIS , COMPL ETE hyaline cast NONE SEEN /lpf none seen normal Not Available [address] [address] [place], [address], 04/26/2023 20:21:26 04/25/20 23 04/26/2023 CULTU RE, URINE , ROUTI NE culture, urine, routine CULTU RE, URINE , ROUTI NE Micro Numbe r: [id number] Test Statu s: Final Speci men Sourc e: Urine Speci men Quali ty: Adequ ate Resul t: No Growt h Not Available [address] [address] [place], [address], 04/26/2023 20:21:27 06/27/20 23 06/28/2023 MAGNE SIUM magnesium 2.1 mg/dL 1.5-2. 5 normal Not Available [address] [address] [place], [address], 06/28/2023 05:34:59 10/05/19 22 10/01/2021 MAMMO karlos, digit al, bilat eral No observ ation record ed. [id number] Not Available 08/27/2022 17:48:16 01/30/20 23 01/28/2023 MAMMO karlosg, digit al, bilat eral No observ ation record ed. [email or web address] Not Available 2022 15:24:42 04/27/20 23 04/25/2023 XR, lumbo sacra l spine , 4 or more view No observ ation record ed. [email or web address] Not Available 2022 08:31:45 05/11/20 23 05/10/2023 XR, kidne y + urete r + bladd er No observ ation record ed. [email or web address] [facility] [address], [place], [address], 05/18/2023 15:39:40 05/27/20 23 05/26/2023 CT, abdom en + pelvi s, w/o contr ast No observ ation record ed. [address], [place], [address], 05/27/2023 14:50:44 Result Notes None recorded. Problems Name Problem SNOMED Code Status Onset Date Resolution Date Notes Provider Name and Address Organization Details Recorded Time Benign hypertension 72590471 Active Not Available [facility] 3 17:46:40 Lightheadedne ss 488025689 Active Not Available [facility] 3 17:46:40 Anxiety 51645101 Active Not Available [facility] 3 17:46:40 Upper respiratory infection 14407841 Active Not Available [facility] 3 17:46:40 Hypertensive disorder 67913805 Active 2011 Not Available [facility] 17:46:40 Esophageal dysphagia 03035406 Active 2017 Not Available [facility] 3 17:46:40 Vitamin D deficiency 18711184 Active 2021 Not Available [facility] 17:46:40 Easy bruising 229786906 Active 2021 Not Available [facility] 3 17:46:40 Benign essential hypertension 9067769 Active 2022 KRISTIAN Mcmanus [address], [place], [address] , [employer] 3 17:23:43 Submandibular lymphadenopat hy 520532664 Active 2022 KRISTIAN Mcmanus [address] [employer] [address], [place], [address] , [employer] 3 17:51:52 Leukopenia 43928356 Active 2022 KRISTIAN Mcmanus [address], [address], [place], [address] , [employer] 3 16:57:05 Lower urinary tract symptoms 694360453 Active 2022 KRISTIAN Mcmanus [address], [address], [place], [address] , [employer] [facility] 3 14:57:45 Acute urinary tract infection 250750331 Active 2022 KRISTIAN Mcmanus [address], [address], [place], [address] , [employer] [facility] 3 14:23:01 Low back pain 209024465 Active 2022 KRISTIAN Mcmanus [address], [address], [place], [address] , [employer] [facility] [employer] 3 10:26:23 Indigestion 418912233 Active 2022 KRISTIAN Mcmanus [address], [address], [place], [address] , [employer] [facility] 3 10:28:19 Ganglion of flexor tendon sheath of finger 097293644 Active 2022 KRISTIAN Mcmanus [address], [address], [place], [address] , [employer] [facility] 3 10:28:45 Ureteric stone 98126431 Active 2022 KRISTIAN Mcmanus [address], [address], [place], [address] , [employer] [facility] 3 17:43:08 Intermittent palpitations 109240267 Active 2022 KRISTIAN Mcmanus [address], [address], [place], [address] , [employer] [facility] 3 10:13:04 Problem Notes None recorded. Procedures Surgical History Date Name Laterality Status Provider Name and Address Organization Details Recorded Time 01/28/20 23 other completed STIVEN Rooney CT [facility] 04/24/2023 10:02:02 04/24/20 18 Most Recent Bone Density completed Not Available [employer] 08/27/2022 17:46:15 03/03/20 18 Date of Last Colonoscopy completed Not Available [facility] 08/27/2022 17:46:15 Carpal tunnel surgery completed Not Available [facility] 08/27/2022 17:46:16 laparoscopy completed Not Available [facility] 08/27/2022 17:46:16 Tonsillectomy completed Not Available [facility] 08/27/2022 17:46:16 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 Procedure Notes None recorded. Medical Equipment None Reported. Allergies Allergen ID Allergen Name Allergen Category Reaction Reaction Severity Criticality Documentation Date Start Date Code Code System Note Provider Name and Address Organization Details Recorded Time 19433 peanut allergeni c extract food,medi cation anaphylax is severe Not available 08/27/2022 19859 8 RxNorm Not Available [facility] 3 17:48:15 33544 halibut liver oil food anaphylax is severe Not available 08/27/20222017 30200 RxNorm Not Available [facility] 3 17:48:15 25177 wheat gluten extract food Not available Not available Not available 08/27/20222017 86029 81 RxNorm Other react ions and sever ities : 'Swel ling - Moder ate'. Not Available [facility] 3 17:48:15 14883 egg extract food,medi cation Not available Not available Not available 08/27/20222017 52678 15 RxNorm Not Available [facility] 3 17:48:15 Medications Name Sig Start Date Stop Date Status Note LastModified by Organization Details LastModified Time binaxnow cov kit home mabel 12/22 completed Not Available Not Available Not Available losartan 50 mg tablet TK 1 T PO QD 09/25 completed Not Available Not Available Not Available amoxicillin 500 mg capsule TAKE 1 THREE TIMES DAILY UNTIL ALL TAKEN 12/22 completed Not Available Not Available Not Available azithromyci n 250 mg tablet TAKE 2 TABLETS (500 MG) BY ORAL ROUTE ONCE DAILY FOR 1 DAY THEN 1 TABLET (250 MG) BY ORAL ROUTE ONCE DAILY FOR 4 DAYS active Not Available Not Available No t Available valacyclovi r 1 gram tablet active Not Available Not Available Not Available hydrocodone 5 mg-acetamin ophen 325 mg tablet 09/15 completed Not Available Not Available Not Available sucralfate 1 gram tablet 04/18 completed Not Available Not Available Not Available estradiol 0.1 mg/24 hr semiweekly transdermal patch APPLY 1 PATCH TOPICALLY TO THE SKIN 2 TIMES A WEEK active Not Available Not Available No t Available ciprofloxac in 500 mg tablet TAKE 1 TABLET BY MOUTH EVERY 12 HOURS 02/25 completed Not Available Not Available Not Available sulfamethox azole 800 mg-trimetho prim 160 mg tablet Take 1 tablet every 12 hours by oral route. 11/13 completed Not Available Not Available Not Available omeprazole 40 mg capsule,del ayed release TK ONE C PO B RITIKA AND 1 C B DINNER 09/25 completed Not Available Not Available Not Available amoxicillin 500 mg tablet 09/15 completed Not Available Not Available Not Available ketorolac 10 mg tablet 04/18 completed Not Available Not Available Not Available potassium chloride 20 mEq oral packet Take 1 packet every day by oral route. 2015 active Not Available Not Available Not Avai lable amoxicillin 875 mg tablet Take 1 tablet every 12 hours by oral route. active Not Available Not Available No t Available alprazolam 0.25 mg tablet TAKE 1 TABLET BY MOUTH EVERY DAY NEEDED 2022 active Not Available Not Available Not Avai lable potassium chloride ER 20 mEq tablet,exte nded release(par t/cryst) TK 1 T PO QD 04/18 completed Not Available Not Available Not Available famotidine 20 mg tablet TAKE 1 TABLET BY MOUTH TWICE DAILY WITH MEALS active Not Available Not Available No t Available potassium chloride ER 8 mEq tablet,exte nded release Take 20 milliequi valents by oral route. 04/15 completed Not Available Not Available Not Available hydrochloro thiazide 12.5 mg capsule TK ONE C PO QD 04/18 completed Not Available Not Available Not Available metoprolol succinate ER 25 mg tablet,exte nded release 24 hr TAKE 1 TABLET BY MOUTH EVERY DAY active Not Available Not Available No t Available neomycin 500 mg tablet 09/15 completed Not Available Not Available Not Available losartan 50 mg-hydrochl orothiazide 12.5 mg tablet TAKE 1 TABLET BY MOUTH DAILY 03/17 completed Not Available Not Available Not Available Depo-Estrad iol 5 mg/mL intramuscul ar oil Inject 0.2 mL every 4 weeks by intramusc ular route. 12/22 completed Not Available Not Available Not Available amoxicillin 875 mg-potassiu m clavulanate 125 mg tablet TAKE 1 TABLET BY MOUTH EVERY 12 HOURS 02/25 completed Not Available Not Available Not Available oxycodone 5 mg tablet 04/24 completed Not Available Not Available Not Available Vitamin D3 25 mcg (1,000 unit) capsule Take 1 capsule every day by oral route. 2015 active Not Available Not Available Not Avai lable nitrofurant oin monohydrate /macrocryst als 100 mg capsule TAKE 1 CAPSULE BY MOUTH EVERY 12 HOURS active Not Available Not Available No t Available chlorhexidi ne gluconate 0.12 % mouthwash 04/18 completed Not Available Not Available Not Available calcium takes daily. 12/22 completed Not Available Not Available Not Available Fish Oil daily 2015 active Not Available Not Available Not Avai lable Xanax one daily 01/29 completed Not Available Not Available Not Available GaviLyte-G 236 gram-22.74 gram-6.74 gram-5.86 gram oral solution 03/09 completed Not Available Not Available Not Available calcium 600 mg (as carbonate)- vitamin D3 20 mcg (800 unit) tablet Take 1 {tbl} by oral route. 04/15 completed Not Available Not Available Not Available Vitamin B12 takes 500mcg daily 2017 active Not Available Not Available Not Avai lableela Callejas COVID-19 Ag Self Test kit TEST DIRECTED TODAY 12/22 completed Not Available Not Available Not Available Vitals Date Recorded Body mass index (BMI) Body height Oxygen saturation Oxygen saturation in Arterial blood by Pulse oximetry Heart rate Body temperature Body weight Systolic And Diastolic Provider Name and Address Organization Details Last Updated DateTime 1 27.7 kg/m2 165.1 cm 98 % 98 % 78 /min 97 [degF] 84555.0 5 g 120/80 mm[Hg] Not Available [facility] 3 17:46:30 Date Recorded Body mass index (BMI) Body height Oxygen saturation Oxygen saturation in Arterial blood by Pulse oximetry Heart rate Respiratory rate Body temperature Body weight Systolic And Diastolic Provider Name and Address Organization Details Last Updated DateTime 2 23.8 kg/m2 165.1 cm 99 % 99 % 84 /min 16 /min 97.6 [degF] 11379.7 1 g 114/68 mm[Hg] Not Available [facility] 3 17:46:30 Date Recorded Body height Body temperature Body mass index (BMI) Body weight Respiratory rate Oxygen saturation Oxygen saturation in Arterial blood by Pulse oximetry Heart rate Systolic And Diastolic Provider Name and Address Organization Details Last Updated DateTime 3 165.1 cm 97.6 [degF] 25.4 kg/m2 35557.8 4 g 16 /min 98 % 98 % 62 /min 122/80 mm[Hg] STIVEN Rooney [facility] [employer] 3 17:21:03 Date Recorded Body height Body temperature Body mass index (BMI) Body weight Respiratory rate Oxygen saturation Oxygen saturation in Arterial blood by Pulse oximetry Heart rate Systolic And Diastolic Provider Name and Address Organization Details Last Updated DateTime 3 165.1 cm 97.2 [degF] 24.3 kg/m2 75222.4 9 g 16 /min 98 % 98 % 82 /min 120/80 mm[Hg] STIVEN Rooney [facility] [employer] [facility] 3 10:02:41 Social History Question Answer Notes LastModified by Organizat ion Details LastModified Time Tobacco Smoking Status Never Smoker Not Available [facility] 08/27/2022 17:46:13 What Is Your Level Of Caffeine Consumption? None [id number] Information not available 08/27/2022 How Much Tobacco Do You Chew? None [id number] Information not available 08/27/2022 In The 14 Days Before Symptom Onset, Have You Had Close Contact With A Laboratory-confirm ed COVID-19 While That Case Was Ill? No [id number] Information not available 08/27/2022 In The 14 Days Before Symptom Onset, Have You Had Close Contact With A Person Who Is Under Investigation For COVID-19 While That Person Was Ill? No [id number] Information not available 08/27/2022 What Type Of Diet Are You Following? REGULAR [id number] Information not available 08/27/2022 Have There Been Any Changes To Your Family Or Social Situation? No [id number] 1958 Information not available 08/27/2022 Are There Any Guns Present In Your Home? Yes [id number] Information not available 08/27/2022 Do You Use Insect Repellent Routinely? No MIGRATION.[id number] 7784 Information not available 08/27/2022 What Is Your Relationship Status? [id number].[id number] 1589 Information not available 08/27/2022 Do You Use Your Seat Belt Or Car Seat Routinely? Yes [id number] 2219 Information not available 08/27/2022 Do You Have Smoke And Carbon Monoxide Detectors In Your Home? Yes [id number].[id number] 0939 Information not available 08/27/2022 At What Age Did You Start Smoking Tobacco? 1 MIGRATION.[id number] 8284 Information not available 08/27/2022 How Much Tobacco Do You Smoke? No MIGRATION.[id number] 2862 Information not available 08/27/2022 Do You Use Sunscreen Routinely? Yes MIGRATION.[id number] 3858 Information not available 08/27/2022 How Many Years Have You Smoked Tobacco? 0 MIGRATION.029802 8335 Information not available 08/27/2022 Have You Recently Traveled Abroad? No MIGRATION.[id number] 8228 Information not available 08/27/2022 Do You Have Any Dietary Restrictions? No MIGRATION.864579 5333 Information not available 08/27/2022 Sex: Unknown Functional Status Question Answer Note LastModified by Organizat ion Details LastModified Time Do you use any illicit or recreational drugs? No MIGRATION.[id number] Information not available 08/27/2022 Do you or have you ever used any other forms of tobacco or nicotine? No MIGRATION.288395 2176 Information not available 08/27/2022 What is your level of alcohol consumption? Moderate MIGRATION.011505 1642 Information not available 08/27/2022 Do you or have you ever used smokeless tobacco? 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 Never used electronic cigarettes MIGRATION.[id number] 6265 Information not available 08/27/2022 What is your exercise level? Occasional MIGRATION.[id number] 1555 Information not available 08/27/2022 Mental Status None recorded. Family History Relationship Description Onset Age of this Age Resolved Age Notes LastModified by Organization Details LastModified Time Mother Depressive disorder [id number] Not available 08/27/2022 17:46:16 Mother Malignant neoplasm of skin and colon [id number] Not available 08/27/2022 17:46:16 Mother Family history of cancer of colon [id number].[id number] Not available 08/27/2022 17:46:16 Father Hypertensive disorder [id number] Not available 08/27/2022 17:46:16 Father Malignant neoplasm of skin MIGRATION.627 [id number] Not available 08/27/2022 17:46:16 Unspecified Relation Cerebrovascu lar accident [id number] Not available 08/27/2022 17:46:16 Medical History Condition Response HYPERTENSION Y CANCER: SPECIFY Y ANXIETY DISORDER Y BACK / NECK PROBLEMS Y DEPRESSION (INCLUDING POST ) Y Gynecological History Statement/Question Response Date of Last Colonoscopy 03/03/2018 Most Recent Bone Density 04/24/2018 Obstetrics History GPAL:G 0 P 0 0 0 0 Past Encounters Encounter ID Performer Location Encounter Start Date Encounter Closed Date Diagnosis/Indication Diagnosis SNOMED-CT Code Diagnosis ICD10 Code Diagnosis IMO Codes Diagnosis Note [id number] KRISTIAN Mcmanus [facility] [place] [address] [place] [address] 12/17/2020 00:00:00 12/17/2020 22:30:57 [id number] Jose Rizzo MD [facility] [place] [address] [place] [address] 12/17/2021 00:00:00 12/22/2021 09:44:38 [id number] KRISTIAN Mcmanus [facility] [place] [address] [place] [address] 12/22/2022 17:14:40 12/22/2022 17:52:05 Adult health examination 047125160 Z00.01 well exam completed Benign ess ential hypertension 3281292 I10 stable on metoprolol Anxiety 83725361 F41.9 refill on alprazolam pRN use. Long-term drug therapy 150649013 Z79.899 routine CBC, CMP, and TFTs due Cholesterol screening 27 9523191 Z13.220 fasting lipids due Diabetes m ellitus screening 892233295 Z13.1 screening diabetes due. Hormone re placement therapy 616705255 Z79.890 stable on HRTx Vitamin D deficiency 347 17874 E55.9 pt would like vit D lab check again Submandibu lar lymphadenopathy 216155967 R59.0 start course of augmentin therapy. if lymph remains same size, then referral to ENT will be obtained with sot tissue CT scan neck [id number] KRISTIAN Mcmanus [facility] [place] [address] [facility] [address] [place] [address] 04/24/2023 09:55:29 04/24/2023 10:45:31 Low back pain 379108773 M54.50 check xray of LS spine. Lower urin jayashree tract symptoms 950224575 R39.9 start macrobid 100mg bid x 7 days. urine dipstick shows only the chronic microscopi c RBC she has. check formal UA w/cx. Indigestion 278812371 K3 0 start famotidine 20mg bid w/meals to see if this helps with some of the GI upset she is having with her diet altered. Ganglion o f flexor tendon sheath of finger 647419827 M67.449 left middle flexor tendon. very small size, monitor for now. Long-term drug therapy 149949835 Z79.899 repeat cmp ordered. Health Concerns Section Related Observation LastModified by Organization Detai ls LastModified Time None Recorded Concern Status LastModified by Organization Details LastModified Time None Recorded Advance Directives Directive None Recorded Payers Insurance Date Sequence Insurance Name Policy Number Policy Ferguson Covered Member ID Ferguson Member ID Guarantor Name 04/28/2023 1 [employer] [id number] Blake Valdez [id number] Blake Valdez Notes Date Note Type Note Provider Name and Address Organization Details Recorded Time 3 text/html Anxiety/DepressionReport ed by PatientHPIFor severity, patient reportsinterference with sleepbut reportsdenies suicidal ideationsandable to maintain relationships. For context, patient reportsmajor life stressors (fiance ). For associated symptoms, patient reportsanxiety,insomnia, andsleep disturbancesbut reportsdenies homicidal ideations,no significant weight gain,no significant weight loss,no visual/auditory hallucinations,no delusions, andno shortness of breath. For duration, patient reportssymptoms lasting over 2 weeks. For onset/timing, patient reportsstill present. For quality, (doesnt matter time of day.). HypertensionReported by PatientHPIFor duration, patient reportshas noted for years. For onset/timing, patient reportsbetter. For alleviating factors, patient reportsmedication. For associated symptoms, patient reportsno shortness of breath,no fatigue,no palpitations,no decline in exercise capacity, andno snoring. Wellness KRISTIAN Mcmanus [address] [facility] [address], [place], [address], [facility] [employer] 12/22/2022 22:00:39 3 text/html Back PainReported by PatientHPIFor severity, patient reportspain level 5/10andmoderate (5-7)but reportssame. For duration, patient reportsacuteandintermitt ent. For onset/timing, patient [id number] ago. For associated symptoms, patient reportsno fever,no weak limbs,no numbness of the legs/feet,no tingling,no incontinence, andno shortness of breath. For location, (lower back on l side and the pain will radiate up the l side of her back). For quality, (ache). For alleviating factors, (nothing). For aggravating factors, (nothing). Generic HPI TemplateReported by PatientHPIFor location, (l middle finger). For quality, (lump). For severity, (not changing). For duration, (constant). For onset/timing, (couple weeks). For context, (unknown). For aggravating factors, (hits it on something). KRISTIAN Mcmanus [address] [facility] [facility] [address], [place], [address], [facility] 04/25/2023 14:00:28 OBGyn Episode No OBEpisode recorded.
--- OUTSIDE RECORDS SUMMARY | 2025-04-26 15:16 | XMS_ITS | Encounter Summary ---
Author Organization [facility] Address [address] [place] [address] Care Team Providers Care Workforce Development Vice President Name Role Phone Maxi Coelho MD Primary Care Provider + Encounter Details Date Type Department Care Team (Latest Contact Info) Description 11/10/2006 Outpatient Historical HIS [facility] SARAH Patton, Jose Vargas MD [address] [place] [phone] Screening Mammogram for High-Risk Patient (Primary Dx) Social History Tobacco Use Types Packs/Day Years Used Date Smoking Tobacco: Never Assessed Comments Unknown Sex and Gender Information Value Date Recorded Sex Assigned at Not on file 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
--- OUTSIDE RECORDS SUMMARY | 2025-04-26 15:16 | XMS_ITS | Patient Health Record ---
Author Organization [facility] Address [address] Schulte. 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 Name Role Phone Tania Aguirre Primary Care Provider Unavailab leela Sow MD, Megan Unavailable Unavailable Reason For Referral No Information Medications Medication SIG (Take, Route, Frequency, Duration) Notes Start Date End Date Status Omeprazole 40 MG 1 capsule Orally Onc e a day Active OTC/Vitamins Calcium, Fish Oil, Vit B12, Magnesium, Luminaria, Hypo Zymose Active Depo-Estradiol Activ e Neomycin Sulfate 500 MG 1 tablet Orally BID; Duration: 10 days Active Losartan Potassium-HCTZ Active Xanax Active Metoprolol Succinate ER Active Carafate 1 GM 1 tablet on an empty stomach Orally Twice a day; Duration: 30 day(s) 09/20/2018 Active Immunizations Vaccine Route Administration Date Status Comme nts Influenza Vaccination Unknown 05/27/2018 Refused Social History Tobacco Use: Social History Observation Description Date Details (start date - stop date) Never Smoker NA - NA Tobacco Use/Smoking Question Answer Notes Are you a nonsmoker Problems Problem Type SNOMED Code ICD Code Onset Dates Problem Status W/U Status Risk Notes Problem Eosinophilic esophagitis (972177553) Eosinophilic esophagitis (K20.0) Active confirmed Problem Right upper quadrant pain (399863184) Right upper quadrant pain (R10.11) Active confirmed Problem Dyspepsia (200046043) Dyspepsia (R10.13) Active confirmed Problem Small bowel bacterial overgrowth syndrome (034250697) Small intestinal bacterial overgrowth (K63.89) Active confirmed Problem Flatulence, eructation and gas pain (004030369) Bloating (R14.0) Active confirmed Problem Family History of Cancer of Colon (Situation) (741299876) Family history of colon cancer (Z80.0) Active confirmed Problem History of polyp of colon (situation) (136348676) History of colon polyps (Z86.010) Active confirmed Problem Constipation (55138753) Constipation, unspecified constipation type (K59.00) Active confirmed Problem Gastroesophageal reflux disease (disorder) (874666678) Chronic GERD (K21.9) Active confirmed Problem Right upper quadrant pain (706914525) Abdominal pressure in right upper quadrant (R10.11) Active confirmed Plan Of Treatment Pending Test Test Name Order Date Initiate SIBO 04/08/2018 Insurance Providers Payer Name Payer Address Payer Phone Subscriber Number Group Number Insured Name Patient Relationship to Insured Coverage Start Date Coverage End Date Blue Access Choice PPO [id number] [address] [place] [address] [id number] Blake Valdez Self - patient is the insured Medical (General) History Medical History History ICD Code Colon polyps Hypertension Ovarian cancer Anxiety Surgical History Surgery Date(Month/Year) Colonoscopy (outside provider) 02/2018 EGD 2018 Hysterectomy Ovarian cancer Carpal tunnel Endometriosis Cholecystectomy
--- OUTSIDE RECORDS SUMMARY | 2025-04-26 15:16 | XMS_ITS | Clinical Summary ---
Author Organization [facility] Address [address] [place] [address] Care Team Providers Care Cutter Brake Lining Name Role Phone Tania Aguirre Primary Care Pr ovider Megan Sow MD Unavailable [phone] SenBety contreras DO Unavailable [phone] Tania Aguirre Unavailable Allergies Active Allergy Reactions Criticality Noted Date Comments Dairy - All Forms And Ingredients Diarrhea Low Egg Stomach upset Low 03/02/2018 Egg Extract Hives Medium 03/02/2018 Garlic Unknown 01/11/2024 Gluten Swelling Medium 12/01/2017 Halibut Liver Oil Anaphylaxis High 12/01/2017 Halibut only Other Swelling Medium 12/01/2017 corn Peanut Anaphylaxis High 02/11/2023 Sesame Unknown Medium 02/17/2018 Medications metoprolol XL (TOPROL-XL) 25 mg 24 hr tablet Take 1 tablet (25 mg total) by mouth every morning 3 09/10/2017 Active famotidine (PEPCID) 20 mg tablet Take 1 tablet (20 mg total) by mouth 04/26/2023 Active ALPRAZolam (XANAX) 0.25 mg tablet Take 1 tablet (0.25 mg total) by mouth as needed for anxiety 1/4 tab prn Active estradioL (Vivelle-Dot) 0.1 mg/[address] 1 patch on the skin 2 (two) times a week for 4 days Remove old patch. Apply one new patch twice weekly to dry skin. (example, Thursday and ) 24 patch 3 12/15/2024 Active omeprazole (PriLOSEC) 40 mg capsule Take 1 capsule (40 mg total) by mouth daily 30 capsule 2 01/16/2025 Active Active Problems Problem Noted Date Diagnosed Date Gastritis 01/23/2025 Colon cancer screening 01/05/2024 Parotid mass 01/15/2023 Overview (02/10/2023): DIAGNOSIS: Right parotid pleomorphic adenoma PROCEDURE PERFORMED: (Lyle 01/29/23) Right parotidectomy Eosinophilic esophagitis 01/07/2023 Flatulence, eructation and gas pain 01/07/2023 Right upper quadrant pain 01/07/2023 Small intestinal bacterial overgrowth (SIBO) 05/2023 Neck mass 01/06/2023 Abdominal pain 02/23/2018 Overview (02/23/2018): Added automatically from request for surgery [id number] Bloating 02/23/2018 Overview (02/23/2018): Added automatically from request for surgery [id number] Nausea 02/23/2018 Overview (02/23/2018): Added automatically from request for surgery [id number] Esophageal dysphagia 12/04/2017 Overview (12/04/2017): Added automatically from request for surgery [id number] Skin lesion of breast 2013 Food allergy 05/25/2012 Overview (10/01/2016): Multiple food allergies Hypertension 05/25/2012 Overview (10/02/2016): Hypertension Hematuria 05/25/2012 Overview (10/02/2016): Hematuria History of ovarian cancer 05/25/2012 Overview (10/03/2016): History of ovarian cancer Eczema 01/20/2011 Microscopic hematuria 09/16/2010 Palpitations 11/22/2008 Encounters Date Type Department Care Team Description 04/25/2025 Telephone [facility] [address] [place] [address] Analilia Palacio RN GI Preprocedure 04/21/2025 Telephone [facility] Specialty Services [facility] [place] [address] Analilia Palacio RN GI Preprocedure 03/29/2025 6:50 AM CDT - 03/29/2025 11:59 PM CDT Hospital Encounter [facility] [address] [place] [phone] Encounter for screening mammogram for malignant neoplasm of breast Discharge Disposition: Discharge to home or self care from Last 3 Months Surgical History Surgery Date Site/Laterality Comments OTHER SURGICAL HISTORY 06/29/2006 - 06/28/2007 Cancer, ovarian: DEVYN, BSO & appendectomy UPPER GASTROINTESTINAL ENDOSCOPY 06/29/2017 - 06/28/2018 COLONOSCOPY 06/29/2017 - 06/28/2018 APPENDECTOMY TUMOR REMOVAL neck and chest CHOLECYSTECTOMY 7 years ago HYSTERECTOMY 06/29/2006 - 06/28/2007 OOPHORECTOMY 06/29/2006 - 06/28/2007 Medical History Medical History Date Comments Hx Other Medical 1993 surgery for end ometriosis Hx Other Medical 1995 carpal tunnel s urgery Hx Other Medical 1997 surgery for end ometriosis Hx Other Medical 2004 partial hystere ctomy Malignant neoplasm of ovary 2006 Canc er, ovarian Endometriosis Endometriosis - 1992 and 1996 (Added by TW Conv) Personal history of other di seases of the nervous system and sense organs History of carpal tunnel syndrome - (Added by TW Conv) Anxiety disorder Anxiety - (Adde d by TW Conv) MVP (mitral valve prolapse) Tingling feet Food intolerance Hypertension Eosinophilic esophagitis 2009 PONV (postoperative nausea a nd vomiting) Nausea only- reports anti-em etics are effective Kidney stone Ict 2022 HTN (hypertension) Family History Medical History Relation Name Comments Colon polyps Brother Colon cancer Mother Cancer, colon; /Colon adenocarcinoma - (Added by TW Conv) Melanoma Mother Family history of melanoma - (Added by TW Conv) Breast cancer Mother's Sister Thyroid cancer Mother's Sister Cancer, th yroid; Ovarian cancer Paternal Grandmother Cance r, ovarian; Anesthesia problems Neg Hx Pancreatic cancer Neg Hx Prostate cancer Neg Hx Relation Name Status Comments Brother Mother Alive Mother's Sister Paternal Grandmother Alive Social History Tobacco Use Types Packs/Day Years Used Date Smoking Tobacco: Never Passive Smoke Exposure: Never Smokeless Tobacco: Never Tobacco Cessation:Counseling Given: Not Answered Alcohol Use Standard Drinks/Week Comments Yes 0 [...] on file 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 Gender Identity Not on file Sexual Orientation Not on file Obstetrics History Para Term AB IAB SAB Ectopic Multiple Livin g Live Births 3 2 2 2 2 Date Outcome GA Total Labor Labor/2nd/3rd Weight Sex Type Anes PTL Marilee A1 A5 Name Clin Term Term Last Filed Vital Signs Vital Sign Reading Time Taken Comments Blood Pressure 121/86 01/16/2025 1:38 PM CDT Pulse 48 01/16/2025 1:38 PM CDT Temperature 36 C (96.8 F) 01/16/2025 1:18 PM CDT Respiratory Rate 12 01/16/2025 1:38 PM CDT Oxygen Saturation 99% 01/16/2025 1:38 PM CDT Inhaled Oxygen Concentration - - Weight 59.4 kg (131 lb) 03/29/2025 7:16 AM CDT Height 162.6 cm (5' 4) 03/29/2025 7:16 AM CDT Body Mass Index 22.49 03/29/2025 7:16 AM CDT Plan of Treatment Upcoming Encounters Date Type Department Care Team (Latest Contact Info) Description 04/28/2025 1:00 PM CDT Hospital Encounter [facility] [address] [place] [address] Chelsea Mcgraw MD [address] [place] [address] 04/28/2025 1:00 PM CDT - 04/28/2025 1:30 PM CDT Surgery [facility] [address] [facility] [address] [place] [address] Chelsea Mcgraw MD [address] [place] [address] ESOPHAGOGASTRODUODENOSCOPY Scheduled Procedures Name Priority Associated Diagnoses Date/Ti me ESOPHAGOGASTRODUODENOSCOPY Gastritis, presence of bleeding unspecified, unspecified chronicity, unspecified gastritis type 04/28/2025 1:00 PM CDT Health Maintenance Due Date Last Done Comments Depression Screening 1970 Hepatitis C Screening 1970 Hepatitis B Screening 1989 Zoster Vaccine (1 of 2) 2021 Influenza Vaccine (#1) 2025 06/29/2017 Regular Well Visit/Exam 18-64 12/14/2025 12/14/2024, 12/14/2023, 12/11/2022, Additional history exists Breast Cancer Screening-Mammogram 03/29/2026 03/29/2025, 03/11/2024, 01/28/2023, Additional history exists DTaP/Tdap/Td Vaccine (2 - Td or Tdap) 09/09/2030 09/09/2020 Colon Cancer Screening-Colonoscopy 01/10/2034 01/11/2024, 03/03/2018, 08/25/2013 Cervical Cancer Screening Discontinued 2024, 12/14/2023, 12/11/2022, Additional history exists Pneumococcal vaccine <65 Aged Out No longer eligible based on patient's age to complete this topic Procedures Procedure Name Priority Date/Time Associated Diagnosis Comments SCREENING MAMMOGRAM BILATERAL W JORDAN Schedule Routine, Read Routine (OP Routine) 03/29/2025 7:27 AM CDT Encounter for screening mammogram for malignant neoplasm of breast THINPREP IMAGING PAP AND HPV MRNA E6/E7 REFLEX HPV 16,18/45 Routine 12/14/2024 3:13 PM CDT Encounter for well woman exam COLONOSCOPY 01/11/2024 11:05 AM CDT from Last 3 Months or Most Recently Relevant to Health Maintenance Results * Screening Mammogram Bilateral W Jordan (03/29/2025 7:27 AM CDT) Anatomical Region Laterality Modality Breast Bilateral Mammography Impressions 03/29/2025 10:52 AM CDT Bilateral No evidence of malignancy in either breast. OVERALL BI-RADS FINAL ASSESSMENT: 2 - Benign RECOMMENDATION: Recommend bilateral annual screening mammography. Narrative 03/29/2025 10:52 AM CDT EXAMINATION: Screening Mammogram Bilateral W Jordan: 03/29/2025 COMPARISON: Relevant prior studies available at the time of interpretation were reviewed, including the most recent mammogram on: 03/11/2024. TECHNIQUE: Mammography was performed with 2D and 3D digital breast tomosynthesis (DBT) images. CAD was utilized. BREAST PARENCHYMAL COMPOSITION: There are scattered areas of fibroglandular density. FINDINGS: Bilateral There is no suspicious mass, calcification, or architectural distortion in either breast. us Self Screening Mammogram IMG MAMMO PROCEDURES Fi nal Result * ThinPrep(R) Imaging Pap and HPV mRNA E6/E7 Reflex HPV 16,18/45 (12/14/2024 3:13 PM CDT) CLINICAL INFORMATION: [facility] Comment:None given LMP [facility] Comment:NONE GIVEN Previous Pap [facility] Comment:NONE GIVEN Prev. Bx [facility] Comment:NONE GIVEN SOURCE: [facility] Comment:None given Pap, specimen adequacy [facility] Comment: Satisfactory for evaluation. Endocervical/transformation zone component absent. Age and/or menstrual status not provided HPV interp [facility] Comment: Cytology Results: Negative for intraepithelial lesion or malignancy. COMMENTS [facility] Comment: This Pap test has been evaluated with computer assisted technology. Insole Channeler [facility] Comment: BES, CT(ASCP) CT screening location: [place] [address] [address] [place] [address] Comment [facility] Comment: EXPLANATORY NOTE: The Pap is a screening test for cervical cancer. It is not a diagnostic test and is subject to false negative and false positive results. It is most reliable when a satisfactory sample, regularly obtained, is submitted with relevant clinical findings and history, and when the Pap result is evaluated along with historic and current clinical information. Human papillomavirus RNA, High Risk E6/E7 Not Detected Not Detected [facility] Comment: Methodology: Rubber Boots And Shoes Repairer-Mediated Amplification This assay detects E6/E7 viral messenger RNA (mRNA) from 14 high-risk HPV types (16,18,31,33,35,39,45,51,52,56,58,59,66,68). Cervical sources are required for HPV testing. If a vaginal source from a patient who has had a total hysterectomy with removal of cervix was submitted, please contact the testing laboratory for alternative testing options. For additional information, please refer to http://education.Spruik/faq/CFO092r1 (This link if provided for information/ educational purposes only.) Swab 12/14/2024 3:13 PM CDT 12/15/2024 5:26 PM CDT us Fatou Zapien NP LAB CYTOLOGY ORDERABLES Final Result [place] [address] [address] [place] [address] [place] [address] [place] [address] * Colonoscopy (01/11/2024 11:05 AM CDT) Anatomical Region Laterality Modality Other Narrative Procedure Note Early, Chelsea Levy MD - 01/11/2024 11:05 AM CDT GI ENDOSCOPY [facility] Patient Name: Yenny Valdez Procedure Date: 01/11/2024 11:05 AM Date of : 1970 Admit Type: Outpatient Age: 53 Gender: Female Attending MD: Chelsea Mcgraw M.D. Room: [facility] ENDOSCOPY ROOM 9 Note Status: Finalized Procedure: Colonoscopy Indications: Screening in patient at increased risk: Colorectal cancer in mother before age 60, Last colonoscopy: February 2018 Referring MD: Tania Aguirre PA-C Providers: Chelsea Mcgraw M.D. Medicines: Monitored Anesthesia Care Complications: No immediate complications. Estimated Blood Loss: Estimated blood loss: none. Procedure: Pre-Anesthesia Assessment: - Immediately prior to administration ofmedications, the patient was re-assessed for adequacy to receive sedatives. - The risks and benefits of the procedure and the sedation options and risks were discussed with the patient. All questions were answered and informed consent was obtained. The benefits, risks and alternatives of theprocedure and sedation were discussed and informed consentwas obtained. All questions were answered. Please referto the signed informed consent document in the medical record. The scope was passed under direct vision.The [id number] endoscope was introduced through the anus and advanced to the cecum, identified by appendiceal orifice and ileocecal valve. The colonoscopy was performed without difficulty. The patient tolerated the procedure well. The qualityof the bowel preparation was evaluated using the BBPS ([place] Bowel Preparation Scale) with scores of:Right Colon = 3, Transverse Colon = 3 and Left Colon = 3 (entire mucosa seen well with no residual staining, small fragments of stool or opaque liquid). Thetotal BBPS score equals 9. The bowel preparation used was polyethylene glycol (PEG) via split doseinstruction. The quality of the bowel preparation wasexcellent. Findings: Small non-bleeding internal hemorrhoids were found on retroflexion. The exam was otherwise without abnormality. Impression: - Small non-bleeding internal hemorrhoids werefound on retroflexion. - The examination was otherwise normal. - No specimens collected. Recommendation: - Repeat colonoscopy in 5 years for screeningpurposes. Attending Participation: I personally performed the entire procedure. Electronically signed by Chelsea Mcgraw MD Chelsea Mcgraw M.D. 01/11/2024 12:38:13 PM . Number of Addenda: 0 Note Initiated On: 01/11/2024 11:05 AM us Chelsea Mcgraw MD ENDOSCOPY PROCEDURES Final Res ult from Last 3 Months or Most Recently Relevant to Health Maintenance Insurance [employer] Member Subscriber Plan / Payer (Ef fective 2017-Present) Name:Yenny Valdez Relation to Subscriber:Self Name:YENNY VALDEZ Payer ID:[id number] (NAIC) Type:[employer] [place] Address: [facility] [id number] [place] [id number] [facility] EPO [place] Advance Directives For more information, please contact: [phone] Documents on File Type Date Recorded Patient Hand Buffing Wheel Former Expl anation ADVANCE DIRECTIVE 01/29/2023 7:54 AM Power of Adult Neurologist-Medical * Full Code (Latest Code Status on File) Date Activated Date Inactivated Comments 01/16/2025 12:22 PM 01/16/2025 6:05 PM * Full Code Date Activated Date Inactivated Comments 01/11/2024 11:45 AM 01/11/2024 5:11 PM * Full Code Date Activated Date Inactivated Comments 03/03/2018 8:50 AM 03/03/2018 12:32 PM * Full Code Date Activated Date Inactivated Comments 12/31/2017 7:53 AM 12/31/2017 12:06 PM * Full Code Date Activated Date Inactivated Comments 12/01/2017 10:50 AM 12/01/2017 3:27 PM Care Teams Cutter Brake Lining Relationship Specialty Start Date End Date Tania Aguirre PA PCP - General Physician Duralumin Mechanic 02/10/18 Megan Sow MD [address] [place] [address] Hair Preparer Obstetrics and Gynecology 08/13/21 Bety Arnold DO [address] [place] [address] [place] [address] Consulting Physician Obstetrics and Gynecology 12/14/23 Tania Aguirre PA [address] [place] [address] Referring Physician Physician Duralumin Mechanic 01/21/24
--- OUTSIDE RECORDS SUMMARY | 2025-04-26 15:16 | XMS_ITS | Encounter Summary ---
[facility] Address [address] [place] [address] Care Team Providers Care Account Liaison Hospice Name Role Phone Maxi Coelho MD Primary Care Provider + Encounter Details Date Type Department Care Team (Latest Contact Info) Description 04/01/2001 Inpatient Historical HIS PATIENT IN A BED [facility], Jose Vargas MD [address] [place] [phone] Second-degree perineal laceration, with delivery (Primary Dx) Social History Tobacco Use Types Packs/Day Years Used Date Smoking Tobacco: Never Assessed Comments Unknown Sex and Gender Information Value Date Recorded Sex Assigned at Not on file 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
--- OUTSIDE RECORDS SUMMARY | 2025-04-26 15:16 | XMS_ITS | Encounter Summary ---
Author Organization [facility] Address 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 Gender Identity Not on file Sexual Orientation Not on file documented as of this encounter Plan of Treatment Not on file documented as of this encounter Procedures Procedure Name Priority Date/Time Associated Diagnosis Comments MAMMO SCREEN BILAT W OR WO CAD Routine 12/19/2008 12:17 PM CDT documented in this encounter Results * MAMMO DIGITAL SCREEN BILAT (12/19/2008 12:17 PM CDT) Anatomical Region Laterality Modality Breast Bilateral Other 12/19/2008 12:1 7 PM CDT Narrative 12/20/2008 4:56 PM CDT [address] [address] Admit Date: 12/19/2008 BLAKE VALDEZ Sex: F Admit Prov: JOSE CHACON Date: 1970 Primary Care Prov: CMRN: [id number] Room: KILEYSindhu N: [id number] IMAGING SERVICES Ordering Prov: JOSE CHACON Accession Number: [id number] Interpretation BILATERAL FULL FIELD DIGITAL SCREENING MAMMOGRAM WITH CAD. Date: 12/19/2008 History: Routine Screening. Technique: Full field digital craniocaudal and mediolateral oblique projections of both breasts were obtained. Computer aided detection was performed. Comparison: 10/2007, 10/2006 Breast Parenchymal Composition: Scattered fibroglandular densities. Findings: No suspicious mass, suspicious microcalcifications, or architectural distortion in either breast is identified. Since the prior study, there has been no significant interval change. The computer aided detection system detects no significant abnormality. Overall Assessment: BI-RADS category 1: Negative. Recommendation: Annual mammography is recommended. Assessment BIRADS: 1-Negative Recommendation: Normal interval follow-up Dictated by: TAMICA RUBIO Electronically signed by: TAMICA RUBIO 12/20/2008 16:55 Transcribed: 12/20/2008 09:14 AMK Procedure Note Tamica Rubio - 12/20/2008 [facility] [address] [place], [place] [address] Admit Date: 12/19/2008 BLAKE VALDEZ Sex: F Admit Prov: JOSE CHACON Date: 1970 Primary Care Prov: CMRN: [id number] Room: KILEYSindhu N: [id number] IMAGING SERVICES Ordering Prov: JOSE CHACON Interpretation BILATERAL FULL FIELD DIGITAL SCREENING MAMMOGRAM WITH CAD. Date: 12/19/2008 History: Routine Screening. Technique: Full field digital craniocaudal and mediolateral oblique projections of both breasts were obtained. Computer aided detectionwas performed. Comparison: 10/2007, 10/2006 Breast Parenchymal Composition: Scattered fibroglandular densities. Findings: No suspicious mass, suspicious microcalcifications, or architectural distortion in either breast is identified. Since theprior study, there has been no significant interval change. The computeraided detection system detects no significant abnormality. Overall Assessment: BI-RADS category 1: Negative. Recommendation: Annual mammography is recommended. Assessment BIRADS: 1-Negative Recommendation: Normal interval follow-up Dictated by: TAMICA RUBIO Electronically signed by: TAMICA RUBIO 12/20/2008 16:55 Transcribed: 12/20/2008 09:14 AMK us Jose Chacon MD MAMMO ORDERABLES Final Resul t documented in this encounter Visit Diagnoses Diagnosis Other screening mammogram documented in this encounter Care Teams Prototype Special Build Relationship Specialty Start Date End Date Maxi Coelho MD PCP - General 07/13/09 documented as of this encounter
--- OUTSIDE RECORDS SUMMARY | 2025-04-26 15:16 | XMS_ITS | Clinical Summary ---
Author Organization [facility] Address [address] [facility] [address] Phone Care Team Providers Care External Grinder Name Role Phone Maxi Coelho MD Primary Care Provider + Allergies No known active allergies Medications losartan-hydroch lorothiazide (HYZAAR) 50-12.5 mg Oral tablet Take 1 Tab by mouth daily. Active metoprolol tartrate (LOPRESSOR) 25 mg Oral tablet Take 25 mg by mouth daily. Active multivitamins with minerals (ONE DAILY COMPLETE) Oral Tab Take 1 Tab by mouth daily. Active CALCIUM CARBONATE (CALCIUM 500 PO) Take 2 Tabs by mouth daily. Active potassium chloride SR (KLOR-CON M20) 20 mEq Oral tablet Take 2 Tabs by mouth daily. Active alprazolam (XANAX) 0.25 mg Oral tablet Take 0.25 mg by mouth 1 time daily as needed for Anxiety. 1/2 prn Active ASPIRIN/CAFFEINE (ANACIN PO) Take by mouth 1 time daily as needed. For headaches,seldom Active OTHER MEDICATION CONSULT TO PHARMACY 1 Each by See Admin Instructions route see administration instructions. Flax seed po prn on cereal Active hydrocodone-acet aminophen (LORTAB) 5-500 mg Oral tablet Take 2 Tabs by mouth every 4 hours as needed for Pain. 30 Tab 0 07/30/19 10 Active nitrofurantoin macrocrystal (MACRODANTIN) 100 mg Oral Cap Take 1 Cap by mouth 2 times daily. 14 Cap 0 07/30/19 10 Active phenazopyridine (PYRIDIUM) 200 mg Oral tablet Take 1 Tab by mouth 3 times daily as needed for Pain. 21 Tab 0 02/01/20 10 Active tolterodine SR 24 hour (DETROL LA) 4 mg Oral capsule Take 1 Cap by mouth daily. 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 Gender Identity Not on file Sexual Orientation Not on file Last Filed Vital Signs Vital Sign Reading Time Taken Comments Blood Pressure 120/78 07/30/2009 10:08 AM WORKGROUP LEADER Pulse 65 07/30/2009 10:08 AM WORKGROUP LEADER Temperature 36.7 C (98.1 F) 07/30/2009 10:08 AM WORKGROUP LEADER Respiratory Rate 20 07/30/2009 10:08 AM WORKGROUP LEADER Oxygen Saturation 99% 07/30/2009 10:08 AM WORKGROUP LEADER Inhaled Oxygen Concentration - - Weight 80.7 kg (178 lb) 07/30/2009 5:36 AM WORKGROUP LEADER Height 165.1 cm (5' 5) 07/18/2009 1:12 PM WORKGROUP LEADER Body Mass Index 29.62 07/18/2009 1:12 PM WORKGROUP LEADER Plan of Treatment Health Maintenance Due Date Last Done Comments DTAP/TDAP/TD VACCINES (1 - Tdap) 1990 HEPATITIS B VACCINES (1 of 3 - 19+ 3-dose series) 1990 HPV/Cotest (21-29) 1992 CERVICAL CANCER SCREENING 2001 HPV/Cotest (30-65) 2001 PAP SMEAR 2001 BREAST CANCER SCREENING 2011 01/17/20 10, 12/19/2008, 11/19/2007 COLORECTAL SCREENING 2016 Colorectal Cancer Screening 2016 FIT-DNA Q 3 years 2016 FIT/FOBT Q 1 year 2016 Flex Sig/CT Colonography Q 5 years 2016 ZOSTER VACCINE (1 of 2) 2021 INFLUENZA VACCINE (#1) 2025 Medical Devices Implanted Type Area E Commerce Developer Device Identifier Shelf Expiration Date Model / Serial / Lot Log [id number] - Stents Urological - 1 - Stent U[place] [id number] Implanted:Qty: 1 on 07/30/2009 at [facility] Stent Right: Ureter CR BARD- UROL DIV 03/29/2014 [id number] / / [id number] Procedures Procedure Name Priority Date/Time Associated Diagnosis Comments MAMMO SCREEN BILAT W OR WO CAD Routine 01/16/2010 8:35 AM CDT Other Screening Mammogram from Last 3 Months or Most Recently Relevant to Health Maintenance Results * MAMMO DIGITAL SCREEN BILAT (01/16/2010 8:35 AM CDT) Anatomical Region Laterality Modality Breast Bilateral Mammography Narrative 01/17/2010 9:33 AM CDT BILATERAL FULL FIELD DIGITAL SCREENING MAMMOGRAM WITH CAD, 01/16/2010 History: Routine screening. Technique: Full field digital craniocaudal and mediolateral oblique projections of both breasts were obtained. Comparison: 11/2008, 10/2007, 10/2006 Breast Parenchymal Composition: Scattered fibroglandular densities. Findings: No new dominant masses, suspicious calcifications, parenchymal asymmetry or areas of architectural distortion are identified in either breast. Since the prior study, there has been no significant interval change. The computer aided detection system was utilized. OVERALL ASSESSMENT: BI-RADS Category 1: Negative. Recommendation: Annual mammography is recommended. Procedure Note Tamica Khanna - 01/17/2010 BILATERAL FULL FIELD DIGITAL SCREENING MAMMOGRAM WITH CAD, 01/16/2010 History: Routine screening. Technique: Full field digital craniocaudal and mediolateral obliqueprojections of both breasts were obtained. Comparison: 11/2008, 10/2007, 10/2006 Breast Parenchymal Composition: Scattered fibroglandular densities. Findings: No new dominant masses, suspicious calcifications, parenchymalasymmetry or areas of architectural distortion are identified in eitherbreast. Since the prior study, there has been no significant intervalchange. The computer aided detection system was utilized. OVERALL ASSESSMENT: BI-RADS Category 1: Negative. Recommendation: Annual mammography is recommended. us Jose Patton MD MAMMO ORDERABLES Final Resul t from Last 3 Months or Most Recently Relevant to Health Maintenance Advance Directives For more information, please contact: [phone] * Full Code (Latest Code Status on File) Date Activated Date Inactivated Comments 07/30/2009 6:54 AM 07/30/2009 2:12 PM * Full Code Date Activated Date Inactivated Comments 07/30/2009 5:30 AM 07/30/2009 6:54 AM Care Teams External Grinder Relationship Specialty Start Date End Date Maxi Coelho MD PCP - General 07/13/09
--- OUTSIDE RECORDS SUMMARY | 2025-04-26 15:16 | XMS_ITS | Encounter Summary ---
Author Organization [facility] Address 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
--- OUTSIDE RECORDS SUMMARY | 2025-04-26 15:16 | XMS_ITS | Patient Health Record ---
Author Organization [facility] Address [address] [facility] [address] [place] [address] Care Team Providers Care White Lead Filterer Name Role Phone Patricia Agrawal Unavailable [phone] Reason For Referral No Information Medications Medication SIG (Take, Route, Frequency, Duration) Notes Start Date End Date Status Xanax 0.25 MG Tablet Oral Active Amoxicillin 875 MG Tablet Oral Active Metoprolol Succinate ER 25 MG Tablet Extended Release 24 Hour Oral Active Losartan Potassium-HCTZ 50-12.5 MG Tablet Oral Active Plan Of Treatment No Information
== END 2025-04-26 13:42 | disposition home or self-care (01) ==
PROVIDERS: PCP Physician Assistant; Visit Provider Physician Assistant
DX: R07.89 Other chest pain (principal)
CPT/HCPCS: 71046